=== PATIENT | male | born 1965 | race Caucasian/White ===

== ENCOUNTER 2020-07-09 11:59 | Outpatient (REF) | payer OTHER, SELFPAY | END 2020-07-09 12:00 | disposition home or self-care (01) | LOC: HO.EMPCOV 11:59 | PROVIDERS: Visit Provider Internal Medicine | DX: Z20.822 Contact with and (suspected) exposure to COVID-19 (principal) | CPT/HCPCS: C9803; U0003; U0005 ==

== ENCOUNTER 2022-09-06 12:08 | Outpatient (REF) | payer OTHER, SELFPAY ==
--- NOTE | ~2022-09-06 | XR_ITS ---
EXAMINATION: XR SHOULDER, RIGHT CLINICAL INFORMATION: Pain. COMPARISON: None available. TECHNIQUE: AP external rotation, Grashey and axillary views of the right shoulder. FINDINGS: The bones and soft tissues are normal. No fracture. A minimal accessory ossification center is seen adjacent to the inferior margin of the glenoid process. Glenohumeral and acromioclavicular alignment is anatomic with normal joint space. No abnormal soft tissue calcifications. XR/XR shoulder RT min 2V IMPRESSION: Normal right shoulder.
== END 2022-09-06 12:09 | disposition home or self-care (01) ==
LOC: HO.HOSX 12:08
PROVIDERS: Visit Provider Orthopaedic Surgery
DX: M75.51 Bursitis of right shoulder (principal)
CPT/HCPCS: 20610; 73030; J1100

== ENCOUNTER 2022-10-13 07:00 | Outpatient (RCR) | payer OTHER, SELFPAY ==
--- NOTE | 2022-09-08 10:09 | MHC.PT.EP ---
[facility] [place] Office [place] Office [place] Office [address] Joan Pulido [address] [phone] F: [phone] F: [phone] F: [phone] F: [phone] Physical Therapy Plan of Care Date of Evaluation: Date of Surgery: Diagnosis: BURSITIS Rt SHOULDER Assessment: 57 YO MALE REF TO PT W DX Rt SH BURSITIS AND MILD Rt AC Jt OA. HE RECEIVED A Rt SH INJECTION ON 09/06/22. 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 OBJECTIVE FINDINGS: DECR POSTURAL AWARENESS, LIMITED AROM/PROM Rt SH COMPLEX/SCAP, (+) TTP Rt SUBACROM/ ANT GH AND DELT; STRENGTH DEFICITS IN POST RC/ SCAP MM, AND STABBING PAINS IN Rt ANT SH/ DELTOID AREA. HE HAS DECR LUZ TO SWIMMING, TENNIS, REACHING OVER SH HEIGHT, SUDDEN MVMTS W Rt SH COMPLEX, AND HIS PAIN IS WORSE IN THE AM. THE Pt WOULD BENEFIT FROM PT TO REDUCE SXS OF Rt SH SUBACROMIAL BURSITIS AND Rt AC Jt ARTH; DEV A HEP AND SELF-SX MGMT TECHN, POSTURAL ED , PAIN MGMT, AND STRENGTHENING / ROM Rt SH COMPLEX. Frequency and Duration: The patient will be seen 1 x WK x 6 WKS (Pt PREF) Short Term Goals: *Pt'S Rt SH PAIN DECR TO 2-3/10 W REG ADLs *Pt DEMON IMPROVED AROM Rt SH *Pt DEMON APPROP SCAP RETRACTOR ACTIV *Pt INDEP SELF-CORRECT POSTURE TO REDUCE SH MECH STRESS Raised Printer Goals: *Pt INDEP HEP PROGR AND SELF-SX MGMT STRATEGIES FOR Rt SH *Pt ABLE TO PERFORM REG ADLs AND RESUME TENNIS/SWIMMING W/O EXACERB OF SXS EVIDENT W IMPROVED SPADI (AT EVAL 61/130) *Pt ACHIEVE WFL STRENGTH AND AROM IN Rt SH COMPLEX Treatment Plan: Modalities to reduce pain, spasms and effusion. Manual therapy to restore motion and function. Therapeutic exercise to improve strength and flexibility. Neuromuscular re-education for posture and balance. Therapeutic activities to return to functional activities of daily living. Electronically signed by: BUCKY SANDEEP,PT Please sign and return to therapist. Thank you for your referral.
--- NOTE | 2022-11-19 14:40 | MHC.PT.DC ---
[facility] [place] Office [place] Office [place] [facility] [address] Joan Pulido [address] [phone] F: [phone] F: [phone] F: [phone] F: [phone] Physical Therapy Discharge Report Diagnosis: BURSITIS Rt SHOULDER Date of Surgery: Date of Evaluation: 09/08/22 Date of Discharge: 11/19/22 Treatments to Date: 4 Cancellations to Date: 4 No Shows to Date: 2 Discharge Status: Patient Elected to Stop Recommend MD Follow-up Discharge Summary: THE Pt'S Rt SH PAIN PERSISTED W CERTAIN MOTIONS W ADLs, HOWEVER, HE APPEARED TO BE RESPONDING TO STM AND CAUTIOUS, PROGRESSIVE ROM FOR Rt SH/ SCAPULAR COMPLEX -> ADDRESSING TRIGGER POINTS AND EASING TISSUE TENSION AND TENDERNESS IN Rt SCAP. HE APPEARED TO HAVE ADHESIVE CAPSULITIS TYPE PRESENTATION; THE Pt DOES NOT CURRENTLY HAVE ANY OBVIOUS SH INSTABILITY. THE Pt PREFERRED TO D/C PT AT THIS TIME PENDING HIS MRI. Electronically signed by: BUCKY HOPKINS,PT Please sign and return to therapist. Thank you for your referral.
== END 2022-11-19 14:41 | disposition home or self-care (01) ==
LOC: HO.PT 07:00
PROVIDERS: PCP Hospitalist; Visit Provider Orthopaedic Surgery
DX: M75.51 Bursitis of right shoulder (principal)
CPT/HCPCS: 97014; 97110; 97140; 97162; 97530

== ENCOUNTER 2022-10-18 14:48 | Outpatient (AMB) | payer OTHER, SELFPAY ==
--- NOTE | 2022-10-18 14:57 | A.OFFVIS_ITS ---
Intake Intake Visit Reasons: OV - right shoulder pain, last inj 09/06/22 HPI OV - right shoulder pain, last inj 09/06/22 HPI Details Uday is a 57 year old right hand dominant Diabetic man who presents for an MRI review of his right shoulder pain. He continues to have pain primarily with overhead activities. He says his pain radiates down from his shoulder into his hand. He has been attending PT and has been performing at-home exercises, which he does not think is improving his symptoms much, and he does not take NSAIDs. Review of Systems Const All systems reviewed & are unremarkable except as noted in HPI and below Physical Exam Const General: no acute distress and alert Orientation/consciousness: patient oriented x3 Neuro General: patient oriented x3 Extrem Other: Right Shoulder: external rotation is limited to 25 deg compared to 45 on c/l side. Psych Appearance: grossly normal Affect: normal affect Attitude: cooperative Results Reviewed Results Reviewed: I personally reviewed relevant MR images Thickening of the inferior glenohumeral ligament and inferior labrum with associated edema signal in a patter cocerning for humeral avulsion of the inferor glebohumeral ligament. Mild AC joint arthrosis Assessment & Plan Assessment & Plan (1) Synovitis of right shoulder: Code(s): M65.811 - Other synovitis and tenosynovitis, right shoulder Plan: This is a 57 year old man with right shoulder anterior interval synovitis. He has pain with activity and does seem more affected than compared to prior. He has found no relief with PT, or his previous injection on 09/06/22. He is taking NSAIDs, I recommend he work on passive ROM exercises and anastacio-scapular strengthening and avoid exacerbating activity. He is frustrated. He may benefit from seeing Dr. Duran for nerve stimulation around the joint. (2) Diabetes mellitus: Code(s): E11.9 - Type 2 diabetes mellitus without complications Plan Scribed for Thai Krishnan MD by Pedro Pablo Helton, spanish medical interpreter, on 10/18/22 at 3:00 PM, EST. Coding Level of Care Code Est Pt Level 3 (52133) Diagnoses Synovitis of right shoulder M65.811 Diabetes mellitus E11.9
== END 2022-10-18 15:04 | disposition home or self-care (01) ==
LOC: HO.HOS 14:48
PROVIDERS: PCP Hospitalist; Visit Provider Orthopaedic Surgery
DX: M65.811 Other synovitis and tenosynovitis, right shoulder (principal)
CPT/HCPCS: 99213

== ENCOUNTER → 2022-10-18 14:48 | Outpatient (BNVA) | payer OTHER, SELFPAY | PROVIDERS: PCP Hospitalist; Visit Provider Orthopaedic Surgery ==

== ENCOUNTER 2024-05-04 15:03 | Outpatient (AMB) | payer OTHER, SELFPAY ==
--- NOTE | 2024-05-04 15:05 | MHC.OFFVIS ---
Intake Visit Reasons: Prostate Evaluation/Prostate MRI/PSA Intake Note: New patient Presents for Prostate Evaluation/Prostate MRI/PSA Results Any Urology Medication: Tamsulosin, Finasteride Antibiotic Allergies: Blood Thinners: HPI Comments Details: Isaias is a pleasant male. He is a patient of Dr. Sy. He is seen for the following urologic conditions - elevated PSA - lower urinary tract symptoms Daily tadalafil Six-month follow-up cysto office Lower urinary tract symptoms Family history of BPH Progressive symptoms Maximized on finasteride and tamsulosin Has diabetes diagnosis Imaging - 04/21 MRI 60 g prostate, no lesions of restricted diffusion flow PSA 03/20 4.5 12% Recommend addition of daily tadalafil for bladder stabilization Review of Systems Const Denies chills and Denies fever(s) Card Reports no additional complaints and Denies syncope Resp Denies cough GI Denies abdominal pain and Denies heartburn Reports as per HPI and Denies change in libido Neuro Denies syncope Psych Denies change in libido Endo Denies change in libido Physical Exam Const General: cooperative, healthy appearing, comfortable and no acute distress Orientation/consciousness: patient oriented x3 HEENT Face and sinus: Yes normal facial exam Mouth: moist mucous membranes Neck Neck: Yes normal visual inspection, Yes full ROM and Yes trachea midline Chest Chest palpation & inspection: normal inspection of the chest Resp Effort & Inspection: normal respiratory effort, able to speak in complete sentences and no respiratory distress GI Inspection: Yes normal to inspection Back/Spine/Pelvis Cervical Spine: normal cervical lordosis Thoracic/Lumbar Spine: thoracic and lumbar spine normal to inspection Skin General skin exam: no rashes or lesions noted Neuro General: patient oriented x3, gait normal, tone normal and moves all extremities Extrem General: Yes normal to inspection and Yes capillary refill normal Assessment & Plan Assessment & Plan (1) BPH w urinary obs/LUTS: Code(s): N40.1 - Benign prostatic hyperplasia with lower urinary tract symptoms; N13.8 - Other obstructive and reflux uropathy Category: Medical (2) Elevated PSA: Code(s): R97.20 - Elevated prostate specific antigen [PSA] Category: Medical (3) Erectile dysfunction associated with type 2 diabetes mellitus: Code(s): E11.69 - Type 2 diabetes mellitus with other specified complication; N52.1 - Erectile dysfunction due to diseases classified elsewhere Category: Medical Plan Start tadalafil Follow-up testosterone and six-month follow-up office cystoscopy Orders: Orders Testosterone, Total 6 Months E11.69 - Type 2 diabetes mellitus with other specified complication, N52.1 - Erectile dysfunction due to diseases classified elsewhere Medications: New tadalafil 5 mg PO DAILY 90 days 90 tabs 1RF bladder stability N13.8 - Other obstructive and reflux uropathy, N40.1 - Benign prostatic hyperplasia with lower urinary tract symptoms Patient Instructions: This note is constructed using voice recognition software. While every effort has been made to ensure accuracy chlorine cell tender errors may have been included. Imaging studies, laboratory and physical exam results were discussed and reviewed in detail. No major barriers to patient understanding were identified. An opportunity to ask questions regarding the treatment plan was provided. All questions were answered. The patient expressed understanding and agreement with the above treatment plan. The patient is aware they should contact our office by phone for worsening of their current condition or the appearance of new urologic symptoms. Compliance is encouraged with any medications and followup testing that is ordered. It is a privilege to participate in the urologic care of your patient. If you have any questions or concerns regarding treatment for the above conditions, or other urologic issues, please do not hesitate to contact me. The office telephone contact is [phone]. Sincerely, Dr Salbador Beebe MD, [facility] Compassionate Specialist Care for the Genitourinary System Coding Level of Care Code New Pt Level 4 (00267) Diagnoses BPH w urinary obs/LUTS N40.1; N13.8 Elevated PSA R97.20 Erectile dysfunction associated with type 2 diabetes mellitus E11.69; N52.1
--- OUTSIDE RECORDS SUMMARY | 2024-05-04 15:05 | XMS_ITS | Encounter Summary ---
Author Organization [facility] Address [address] [place] [address] Care Team Providers Care Product Lead Name Role Phone Kayla Sy MD Primary Care Provider [phone] Reason for Referral * Consultation (Routine) - New Request Specialty Diagnoses / Procedures Referred By Cisco santos Referred To Contact Urology Diagnoses Benign prostatic hyperplasia with lower urinary tract symptoms, symptom details unspecified Elevated PSA System, Provider Not In Ramirez, Godfrey Reis III, MD [address] [place] [id number] Phone: tel: fax: Referral ID Status Reason Start Date Expiration Date Visits Requested Visits Authorized [id number] New Request Specialty Services Required 04/23/2024 04/23/2025 1 1 Encounter Details Date Type Department Care Team (Late st Contact Info) Description 04/23/2024 Transcribed Orders EXTERNAL REFERRAL SOURCE [address] [place] [id number] System, Provider Not In Elevated PSA (Primary Dx); Benign prostatic hyperplasia with lower urinary tract symptoms, symptom details unspecified Social History Tobacco Use Types Packs/Day Years Used Date Smoking Tobacco: Never Assessed Sex and Gender Information Value Date Recorded Sex Assigned at Not on file Legal Sex Male 10:37 AM EST Gender Identity Not on file Sexual Orientation Not on file documented as of this encounter Plan of Treatment Scheduled Referrals Name Type Priority Associated Diagnoses Orde r Schedule Ambulatory referral to Urology Outpatient Referral Routine Benign prostatic hyperplasia with lower urinary tract symptoms, symptom details unspecified Elevated PSA Ordered: 04/23/2024 documented as of this encounter Visit Diagnoses Diagnosis Elevated PSA- Primary Elevated prostate specific antigen (PSA) Benign prostatic hyperplasia with lower urinary tract symptoms, symptom details unspecified documented in this encounter Care Teams Product Lead Relationship Specialty Start Date End Date Kayla Sy MD [address] [place] [address] PCP - General Internal Medicine 04/23/24 documented as of this encounter
--- OUTSIDE RECORDS SUMMARY | 2024-05-04 15:05 | XMS_ITS | Encounter Summary ---
Author Organization [facility] Address [address] [facility] [address] [place] [address] Phone Care Team Providers Care Catalytic Case Operator Name Role Phone Unavailable Primary Care Provider Unavailabl e Encounter Details Date Type Department Care Team ([facility] st Contact Info) Description 03/17/2023 Office Communication [facility] [address] [facility] [address] [place] [address] Uday Wall MD [address] [facility] [address] [place] [id number] Social History Tobacco Use Types Packs/Day Years Used Date Smoking Tobacco: Never Assessed Sex and Gender Information Value Date Recorded Sex Assigned at Not on file Legal Sex Male 8:40 AM EDT Gender Identity Not on file Sexual Orientation Not on file documented as of this encounter Plan of Treatment Not on file documented as of this encounter Visit Diagnoses Not on filedocumented in this encounter
--- OUTSIDE RECORDS SUMMARY | 2024-05-04 15:05 | XMS_ITS | Encounter Summary ---
Author Organization [facility] Address [address] [place] [phone] Phone Care Team Providers Care Aluminum Container Tester Name Role Phone Unavailable Primary Care Provider Unavailabl e Encounter Details Date Type Department Care Team (Late st Contact Info) Description 05/01/2024 8:45 AM EST Office Visit [facility] [address] [address] Uday Wall MD [address] [address] Benign prostatic hyperplasia (Primary Dx); Elevated prostate specific antigen (PSA) Social History Tobacco Use Types Packs/Day Years Used Date Smoking Tobacco: Never Assessed Sex and Gender Information Value Date Recorded Sex Assigned at Not on file Legal Sex Male 8:40 AM EDT Gender Identity Not on file Sexual Orientation Not on file documented as of this encounter Progress Notes * Uday Wall MD - 05/01/2024 8:45 AM EST Images from the original note were not included. Patient Name: Cherry Jackson Date of : 1965, 59 y.o. Date: 05/02/2024 [x] New Patient [] Established Patient [] New Hospital Follow Up [] Established Hospital Follow Up [] Telemed Visit [] H&P Referring MD: No primary care provider on file. PCP: No primary care provider on file. 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 The following portions of the patient's chart were reviewed in this encounter and updated as appropriate: ROS Full 13 point review of systems unremarkable except as noted above. No past medical history on file. T2DM 2014 Mild HTN 2015 BPH 2015 and incr PSA 2-4 range ( see below) Larry's syn Colonscopy 02/2024 No past surgical history on file. Social History Tobacco Use Smoking status: Not on file Smokeless tobacco: Not on file Substance Use Topics Alcohol use: Not on file No family history on file. Current Outpatient Medications Medication Sig Dispense Refill finasteride (PROSCAR) 5 MG tablet TAKE 1 TABLET BY MOUTH EVERY DAY 90 tablet 5 tamsulosin (FLOMAX) 0.4 MG 24 hr capsule TAKE 2 CAPSULES BY MOUTH EVERY DAY 180 capsule 5 No current facility-administered medications for this visit. Not on File Objective: There were no vitals filed for this visit. Physical Exam 120/76 Lungs clear RRR Abd soft No edema R leg varicose veins No results found for: EGFRAFR Est GFR Non Date Value Ref Range Status 09/02/2022 87 ML/MIN/1.73 M2 Final Comment: Creatinine based estimated glomerular filtration (eGFR) in adults is calculated using the National [employer] recommended 2020 CKD-EPI equation. Estimates GFR from serum creatinine, age and sex. Testing performed or reported by [facility], a Service of [facility], [address] [place] [address] Jere Molina MD, Baling Machine Tender MINOR# [id number] Chemistry Lab Units 03/15/24 0832 09/09/23 0903 10/29/22 0806 09/02/22 0830 CREATININE mg/dL 1.11 1.05 -- 1.0 BUN mg/dL 13 17 -- 14 BUN / CREAT RATIO 12 16 -- -- EGFRNAFR ML/MIN/1.73 M2 -- -- -- 87 GLUCOSE mg/dL 114* 108* -- 108* POTASSIUM mmol/L 3.9 4.3 4.2 5.1 SODIUM mmol/L 142 142 141 142 CO2 mmol/L 24 23 26 27 CHLORIDE mmol/L 101 106 104 105 ALBUMIN g/dL 4.7 4.4 -- 4.9* 4.9* HEMOGLOBIN A1C % 6.0* 5.8* -- 6.0* BILIRUBIN TOTAL mg/dL 3.6* 1.2 -- 1.5* AST IU/L 22 21 -- 20 ALT IU/L 14 15 -- 16 Bone Mineral Lab Units 03/15/24 0832 09/09/23 0903 09/02/22 0830 CALCIUM mg/dL 9.3 9.3 9.5 PHOSPHORUS mg/dL 2.7* 2.6* 2.9 ALK PHOS IU/L 71 68 60 VIT D 25 HYDROXY ng/mL 23.0* 26.5* -- CBC Lab Units 03/15/24 0832 09/09/23 0903 09/02/22 0830 WBC AUTO x10E3/uL 4.7 4.5 5.4 RBC AUTO x10E6/uL 5.14 4.70 5.12 MCV fL 91 94 94.1* HEMATOCRIT % 46.7 44.1 48.2 HEMOGLOBIN g/dL 16.2 14.8 15.8 PLATELETS AUTO x10E3/uL 201 -- 213 Labs Lab Units 03/15/24 0832 09/09/23 0903 09/02/22 0830 CHOLESTEROL TOTAL mg/dL 182 164 -- HDL mg/dL 74 61 68 NON HDL CHOL. (LDL+ VLDL) MG/DL -- -- 118 TRIGLYCERIDES mg/dL 88 68 68 Urine Lab Units 03/15/24 0832 09/09/23 0903 09/02/22 0830 PROT/CREAT RATIO UR mg/g creat 67 -- -- ALB MG/G CREAT UR mg/g creat 5 <3 Unable to calculate 109.6 Urine Lab Units 03/15/24 0832 PH U 6.0 COLOR U Yellow GLUCOSE UR Negative WBC UR HPF /hpf None seen RBC UR HPF /hpf None seen PROTEIN UR mg/dL 13.1 UROBILINOGEN UA mg/dL 0.2 PLAN: Assessment & Plan Elevated PSA on Proscar x > 5 years MRI 02/2024 No diagnosis found. No orders of the defined types were placed in this encounter. No follow-ups on file. Uday Wall MD documented in this encounter Plan of Treatment Not on file documented as of this encounter Visit Diagnoses Diagnosis Benign prostatic hyperplasia- Primary Elevated prostate specific antigen (PSA) documented in this encounter
--- OUTSIDE RECORDS SUMMARY | 2024-05-04 15:05 | XMS_ITS | Clinical Summary ---
Author Organization [facility] [address] [facility] Address [address] [place] [address] Phone Care Team Providers Care Paleologist Name Role Phone Kayla Sy MD Primary Care Provider [phone] Encounters Date Type Department Care Team Description 04/23/2024 Transcribed Orders EXTERNAL REFERRAL SOURCE [address] [place] [id number] System, Provider Not In Elevated PSA (Primary Dx); Benign prostatic hyperplasia with lower urinary tract symptoms, symptom details unspecified from Last 3 Months Social History Tobacco Use Types Packs/Day Years Used Date Smoking Tobacco: Never Assessed Sex and Gender Information Value Date Recorded Sex Assigned at Not on file Legal Sex Male 10:37 AM EST Gender Identity Not on file Sexual Orientation Not on file Plan of Treatment Health Maintenance Due Date Last Done Comments HIV screening 02/13/1976 Hepatitis C screening 1981 Tetanus adult (Td q 10,TDAP once) 1983 Lipid disorder screening 2003 Diabetes screening 02/13/2008 Shingles vaccine (Shingrix) (1 of 2 - Shingrix (RZV) 2 Dose Standard Series) 2013 Influenza vaccine 10/27/2023 Covid-19 vaccine series ( season) 2023 Colon cancer screening, Colonoscopy 03/16/2034 03/16/2024 RSV Discussion (1 - 1-dose 7 5+ series) 2038 Meningococcal Vaccine Aged Out No nan reji eligible based on patient's age to complete this topic Pneumococcal Vaccine Aged Out No long er eligible based on patient's age to complete this topic Care Teams Paleologist Relationship Specialty Start Date End Date Kayla Sy MD [address] [place] [address] PCP - General Internal Medicine 04/23/24
--- OUTSIDE RECORDS SUMMARY | 2024-05-04 15:05 | XMS_ITS | Clinical Summary ---
Author Organization [facility] Address [address] [address] Phone Care Team Providers Care Musical Therapist Name Role Phone Unavailable Primary Care Provider Unavailabl e Medications finasteride (PROSCAR) 5 MG tablet TAKE 1 TABLET BY MOUTH EVERY DAY 90 tablet 5 03/17/2023 Active tamsulosin (FLOMAX) 0.4 MG 24 hr capsule TAKE 2 CAPSULES BY MOUTH EVERY DAY 180 capsule 5 08/25/2023 Active metFORMIN (Fortamet) 1000 MG 24 hr tablet Take 1 tablet (1,000 mg total) by mouth 1 (one) time each day with dinner Do not crush, chew, or split. 30 tablet 11 05/02/2024 05/02/19 26 Active losartan (Cozaar) 25 MG tablet Take 1 tablet (25 mg total) by mouth 1 (one) time each day 30 tablet 05/02/2024 05/02/19 26 Active Encounters Date Type Department Care Team Description 05/01/2024 8:45 AM EST [facility] Visit [facility] [address] [address] Uday Wall MD Benign prostatic hyperplasia (Primary Dx); Elevated prostate specific antigen (PSA) 05/01/2024 Office Communication [facility] [address] [address] Uday Wall MD 03/15/2024 Office Communication [facility] [address] [address] Uday Wall MD Benign prostatic hyperplasia (Primary Dx); Type 2 diabetes mellitus without complication (HCC) from Last 3 Months Social History Tobacco Use Types Packs/Day Years Used Date Smoking Tobacco: Never Assessed Sex and Gender Information Value Date Recorded Sex Assigned at Not on file Legal Sex Male 8:40 AM EDT Gender Identity Not on file Sexual Orientation Not on file Plan of Treatment Health Maintenance Due Date Last Done Comments Pneumococcal Vaccine: Pediatrics (0 to 5 Years) and At-Risk Patients (6 to 64 Years) (1 of 2 - PCV) 1971 Colorectal Cancer Screening: Annual FOBT 02/13/2012 Colorectal Cancer Screening: Sigmoidoscopy 02/13/2012 Diabetes: Ophthalmology Exam 09/09/2023 Diabetes: Pedal Pulse Checked 09/09/2023 Diabetes: Sensory Foot Exam 09/09/2023 Diabetes: Visual Foot Exam 09/09/2023 Influenza Vaccine (#1) 2023 Diabetes: Hemoglobin A1C 06/13/2024 024, 09/09/2023, 09/02/2022 Colorectal Cancer Screening: Colonoscopy 03/16/2034 03/16/2024 Hepatitis B Vaccine Aged Out No longe r eligible based on patient's age to complete this topic Procedures Procedure Name Priority Date/Time Associated Diagnosis Comments PSA, TOTAL AND FREE Routine 03/22/2024 9 :01 AM EST Benign prostatic hyperplasia Type 2 diabetes mellitus without complication (HCC) APOLIPOPROTEIN B Routine 03/15/2024 8:32 AM EST CBC AND DIFFERENTIAL Routine 03/15/2024 8:32 AM EST Benign prostatic hyperplasia Type 2 diabetes mellitus without complication (HCC) LIPOPROTEIN A (LPA) Routine 03/15/2024 8 :32 AM EST Benign prostatic hyperplasia Type 2 diabetes mellitus without complication (HCC) VITAMIN D 25 HYDROXY Routine 03/15/2024 8:32 AM EST Benign prostatic hyperplasia Type 2 diabetes mellitus without complication (HCC) HEPATIC FUNCTION PANEL Routine 8:32 AM EST Benign prostatic hyperplasia Type 2 diabetes mellitus without complication (HCC) PSA, TOTAL AND FREE Routine 03/15/2024 8 :32 AM EST Benign prostatic hyperplasia Type 2 diabetes mellitus without complication (HCC) PROTEIN / CREATININE RATIO, URINE Routine 03/15/2024 8:32 AM EST Benign prostatic hyperplasia Type 2 diabetes mellitus without complication (HCC) URINE ALBUMIN / CREATININE RATIO Routine 03/15/2024 8:32 AM EST Benign prostatic hyperplasia Type 2 diabetes mellitus without complication (HCC) URINALYSIS WITH MICROSCOPIC Routine 03/15/2024 8:32 AM EST Benign prostatic hyperplasia Type 2 diabetes mellitus without complication (HCC) RENAL FUNCTION PANEL Routine 03/15/2024 8:32 AM EST Benign prostatic hyperplasia Type 2 diabetes mellitus without complication (HCC) HEMOGLOBIN A1C Routine 03/15/2024 8:32 AM EST Benign prostatic hyperplasia Type 2 diabetes mellitus without complication (HCC) LIPID PANEL Routine 03/15/2024 8:32 AM EST Benign prostatic hyperplasia Type 2 diabetes mellitus without complication (HCC) MICROSCOPIC EXAMINATION - DO NOT USE Routine 03/15/2024 8:32 AM EST from Last 3 Months Results * PSA, total and free (03/22/2024 9:01 AM EST) Only the most recent of2 resultswithin the time period is included. PSA 3.7 0.0 - 4.0 ng/mL [employer] Comment: [employer] methodology. According to the [place] [employer], Serum PSA should decrease and remain at undetectable levels after radical prostatectomy. The AUA defines biochemical recurrence as an initial PSA value 0.2 ng/mL or greater followed by a subsequent confirmatory PSA value 0.2 ng/mL or greater. Values obtained with different assay methods or kits cannot be used interchangeably. Results cannot be interpreted as absolute evidence of the presence or absence of malignant disease. PSA, Free 0.44 N/A ng/mL [facility] Comment:Paresh sargent. PSA Free Percent 11.9 % [facility] Comment: The table below lists the probability of prostate cancer for men with non-suspicious PRITESH results and total PSA between 4 and 10 ng/mL, by patient age (Gray et al, LUAN 1998, 279:1542). ?% Free PSA ? 50-64 yr ?65-75 yr ?0.00-10.00% ?56% ? 55% ? 10.01-15.00% ?24% ? 35% ? 15.01-20.00% ?17% ? 23% ? 20.01-25.00% ?10% ? 20% ?>25.00% ? 5% ?9% Please note: ??Gray et al did not make specific ?recommendations regarding the use of ?percent free PSA for any other population ?of men. Blood (Blood, Venous) 03/22/2024 9:01 AM EST 03/22/2024 us Uday Wall MD LAB BLOOD ORDERABLES Final Chana [facility] [address] [place] [address] * Apolipoprotein B (03/15/2024 8:32 AM EST) Apolipoprotein B 78 <90 mg/dL [facility] Comment: ? Desirable ? < 90 ? Borderline High ? 90 - ??99 ? High ? 100 - 130 ? Very High ? >130 ?ASCVD RISK ?THERAPEUTIC TARGET ? CATEGORY ?APO B (mg/dL) ?Very High Risk ?<80 (if extreme risk <70) ?High Risk ? <90 ?Moderate Risk ? <90 03/15/2024 8:32 AM EST 03/15/2024 us Uday Wall MD LAB BLOOD ORDERABLES Final Re sult [facility] [address] [place] [address] * Microscopic Examination (03/15/2024 8:32 AM EST) WBC, Urine None seen 0 - 5 /hpf [facility] RBC, Urine None seen 0 - 2 /hpf [facility] Squamous Epithelial, Urine None seen 0 - 10 /hpf [facility] Casts None seen None seen /lpf [facility] Bacteria, Urine None seen None seen/Few [facility] 03/15/2024 8:32 AM EST 03/15/2024 Uday Wall MD LAB MICROBIOLOGY - GENERAL OR DERABLES Final Result Performing Organization Address [facility]/ZIP Co de Phone Number [facility] [address] [place] [address] * Protein, Total, Random Urine w/Creatinine (Protein/Creat Ratio) (03/15/2024 8:32 AM EST) Creatinine, Ur 195.3 Not Estab. mg/dL [facility] Protein, Ur 13.1 Not Estab. mg/dL [facility] Urine Protein/Creatin ine Ratio 67 0 - 200 mg/g creat [facility] Urine (Urine, Clean Catch) 03/15/2024 8:32 AM EST 03/15/2024 Uday Wall MD LAB URINE ORDERABLES Final Re sult Performing Organization Address City/[facility]/ZIP Co de Phone Number [facility] [employer] [facility] [place] [address] [place] [address] * Urine Albumin / Creatinine Ratio (03/15/2024 8:32 AM EST) Urine Microalbumin 9.9 Not Estab. ug/mL [facility] Microalbumin/Crea tinine Ratio 5 0 - 29 mg/g creat [facility] Comment: ? Normal: ?0 - ??29 ? Moderately increased: 30 - 300 ? Severely increased: ? >300 Urine (Urine, Clean Catch) 03/15/2024 8:32 AM EST 03/15/2024 Uday Wall MD LAB URINE ORDERABLES Final Re sult Performing Organization Address [facility]/RUST de Phone Number [facility] [address] [place] [address] * Lipoprotein A (LPA) (03/15/2024 8:32 AM EST) Pathologist [facility] Lipoprotein (a) 31.7 <75.0 nmol/L [facility] Comment: Note: ??Values greater than or equal to 75.0 nmol/L may ? indicate an independent risk factor for CHD, ? but must be evaluated with caution when applied ? to non- populations due to the ? influence of genetic factors on Lp(a) across ? ethnicities. Blood (Blood, Venous) 03/15/2024 8:32 AM EST 03/15/2024 Uday Wall MD LAB BLOOD ORDERABLES Final Re sult Performing Organization Address [facility]/ZIP Co de Phone Number [employer] [facility] [place] [address] [place] [address] * (ABNORMAL) Vitamin D 25 hydroxy (03/15/2024 8:32 AM EST) Vitamin D, 25-OH, Total 23.0(L) 30.0 - 100.0 ng/mL [facility] Comment: Vitamin D deficiency has been defined by the [place] of [employer] and an Endocrine Society practice guideline as a level of serum 25-OH vitamin D less than 20 ng/mL (1,2). The Endocrine Society went on to further define vitamin D insufficiency as a level between 21 and 29 ng/mL (2). 1. IOM ([place] of [employer]). 2010. Dietary reference ?? intakes for calcium and D. [place]: The ?? National Divided [employer]. 2. Valencia MF, Angel NC, Skyler COLBY, et al. ?? Evaluation, treatment, and prevention of vitamin D ?? deficiency: an Endocrine Society clinical practice ?? guideline. JCEM. 2010; 96(7):1911-30. Blood (Blood, Venous) 03/15/2024 8:32 AM EST 03/15/2024 us Uday Wall MD LAB BLOOD ORDERABLES Final Re sult Performing Organization Address City/[facility]/ZIP Co de Phone Number [employer] [facility] [facility] [address] [place] [address] * Urinalysis with microscopic (03/15/2024 8:32 AM EST) Specific [place], Urine 1.019 1.005 - 1.030 [facility] pH Urine 6.0 5.0 - 7.5 [facility] [phone] Color, Urine Yellow Yellow [facility] [phone] Appearance Urine Clear Clear [facility] [phone] WBC Esterase Urine Negative Negative [facility] Protein, Ur Negative Negative/Tra ce [facility] Glucose, Ur Negative Negative [facility] Ketones, Urine Negative Negative [facility] Blood Urine Negative Negative [facility] Bilirubin Urine Negative Negative [facility] Urobilinogen Urine 0.2 0.2 - 1.0 mg/dL [facility] Nitrite, Urine Negative Negative [facility] Microscopic Examination Comment [facility] Comment:Microscopic follows if indicated. Other Microsc. Observations See below: [facility] Comment:Microscopic was alexey cated and was performed. Urine (Urine, Clean Catch) 03/15/2024 8:32 AM EST 03/15/2024 us Uday Wall MD LAB URINE ORDERABLES Final Re sult [facility] [address] [place] [address] * CBC and differential (03/15/2024 8:32 AM EST) WBC 4.7 3.4 - 10.8 x10E3/uL [facility] RBC 5.14 4.14 - 5.80 x10E6/uL [facility] Hemoglobin 16.2 13.0 - 17.7 g/dL [facility] Hematocrit 46.7 37.5 - 51.0 % [facility] MCV 91 79 - 97 fL [facility] MCH 31.5 26.6 - 33.0 pg [facility] MCHC 34.7 31.5 - 35.7 g/dL [facility] RDW 12.1 11.6 - 15.4 % [facility] Platelets 201 150 - 450 x10E3/uL [facility] Neutrophils Relative 67 Not Estab. % [facility] Lymphocytes Relative 22 Not Estab. % [facility] Monocytes 8 Not Estab. % [facility] Eosinophils Relative 3 Not Estab. % [facility] Basophils Relative 0 Not Estab. % [facility] Neutrophils Absolute 3.2 1.4 - 7.0 x10E3/uL [facility] Lymphocytes Absolute 1.1 0.7 - 3.1 x10E3/uL [facility] Monocytes Absolute 0.4 0.1 - 0.9 x10E3/uL [facility] Eosinophils Absolute 0.1 0.0 - 0.4 x10E3/uL [facility] Basophils Absolute 0.0 0.0 - 0.2 x10E3/uL [facility] Immature Granulocytes 0 Not Estab. % [facility] Immature Grans (Absolute) 0.0 0.0 - 0.1 x10E3/uL [facility] Blood (Blood, Venous) 03/15/2024 8:32 AM EST 03/15/2024 us Uday Wall MD LAB BLOOD ORDERABLES Final Re sult [facility] [address] [place] [address] * (ABNORMAL) Hemoglobin A1c (03/15/2024 8:32 AM EST) Hemoglobin A1C 6.0(H) 4.8 - 5.6 % [facility] Comment: ? Prediabetes: 5.7 - 6.4 ? Diabetes: >6.4 ? Glycemic control for adults with diabetes: <7.0 Blood (Blood, Venous) 03/15/2024 8:32 AM EST 03/15/2024 Uday Wall MD LAB BLOOD ORDERABLES [facility] [address] [place] [address] * (ABNORMAL) Hepatic Function Panel (03/15/2024 8:32 AM EST) Pathologist [facility] Alkaline Phosphatase 71 44 - 121 IU/L [facility] AST (SGOT) 22 0 - 40 IU/L [facility] ALT (SGPT) 14 0 - 44 IU/L [facility] Total Protein 6.7 6.0 - 8.5 g/dL [facility] Total Bilirubin 3.6(H) 0.0 - 1.2 mg/dL [facility] Bilirubin, Direct 0.78(H) 0.00 - 0.40 mg/dL [facility] Blood (Blood, Venous) 03/15/2024 8:32 AM EST 03/15/2024 Uday Wall MD LAB BLOOD ORDERABLES Final Re sult [facility] [address] [place] [address] * (ABNORMAL) Renal Function Panel (03/15/2024 8:32 AM EST) Glucose 114(H) 70 - 99 mg/dL [facility] BUN 13 8 - 27 mg/dL [facility] Creatinine 1.11 0.76 - 1.27 mg/dL [facility] eGFR CKD-EPI CR 2020 76 >59 mL/min/1.7 3 [facility] BUN/Creatinine Ratio 12 10 - 24 [facility] Sodium 142 134 - 144 mmol/L [facility] Potassium 3.9 3.5 - 5.2 mmol/L [facility] Chloride 101 96 - 106 mmol/L [facility] Bicarbonate (CO2) 24 20 - 29 mmol/L [facility] Calcium 9.3 8.6 - 10.2 mg/dL [facility] Albumin 4.7 3.9 - 4.9 g/dL [facility] Phosphorus 2.7(L) 2.8 - 4.1 mg/dL [facility] Blood (Blood, Venous) 03/15/2024 8:32 AM EST 03/15/2024 us Uday Wall MD LAB BLOOD ORDERABLES Final Re sult [facility] [address] [place] [address] * Lipid panel (03/15/2024 8:32 AM EST) Cholesterol 182 100 - 199 mg/dL [facility] Triglycerides 88 0 - 149 mg/dL [facility] HDL 74 >39 mg/dL [facility] VLDL Cholesterol Sunny 16 5 - 40 mg/dL [facility] LDL Calculated 92 0 - 99 mg/dL [facility] Blood (Blood, Venous) 03/15/2024 8:32 AM EST 03/15/2024 Uday Wall MD LAB BLOOD ORDERABLES Final Re sult [facility] [address] [place] [address] from Last 3 Months Insurance
--- OUTSIDE RECORDS SUMMARY | 2024-05-04 15:05 | XMS_ITS | Encounter Summary ---
Author Organization [facility] Address [address] [facility] [address] [place] [address] Phone Care Team Providers Care Business Technology Professor Name Role Phone Unavailable Primary Care Provider Unavailabl e Encounter Details Date Type Department Care Team (Latest Contact Info) Description 09/09/2023 Office Communication [facility] [address] [facility] [address] [place] [address] Uday Wall MD [address] [facility] [address] [place] [phone] Type 2 diabetes mellitus without complication (HCC) (Primary Dx); Essential (primary) hypertension Social History Tobacco Use Types Packs/Day Years Used Date Smoking Tobacco: Never Assessed Sex and Gender Information Value Date Recorded Sex Assigned at Not on file Legal Sex Male 8:40 AM EDT Gender Identity Not on file Sexual Orientation Not on file documented as of this encounter Plan of Treatment Scheduled Orders Name Type Priority Associated Diagnoses Orde r Schedule Renal function panel Lab Routine Type 2 diabetes mellitus without complication (HCC) Essential (primary) hypertension Expected: 09/09/2023, Expires: 10/08/2024 CBC Lab Routine Type 2 diabetes mellitus without complication (HCC) Essential (primary) hypertension Expected: 09/09/2023, Expires: 10/08/2024 AST Lab Routine Type 2 diabetes mellitus without complication (HCC) Essential (primary) hypertension Expected: 09/09/2023, Expires: 10/08/2024 ALT Lab Routine Type 2 diabetes mellitus without complication (HCC) Essential (primary) hypertension Expected: 09/09/2023, Expires: 10/08/2024 Alkaline phosphatase Lab Routine Type 2 diabetes mellitus without complication (HCC) Essential (primary) hypertension Expected: 09/09/2023, Expires: 10/08/2024 Bilirubin, total and direct Lab Routine Type 2 diabetes mellitus without complication (HCC) Essential (primary) hypertension Expected: 09/09/2023, Expires: 10/08/2024 Hemoglobin A1c Lab Routine Type 2 diabetes mellitus without complication (HCC) Essential (primary) hypertension Expected: 09/09/2023, Expires: 10/08/2024 Glucose, random Lab Routine Type 2 diabetes mellitus without complication (HCC) Essential (primary) hypertension Expected: 09/09/2023, Expires: 10/08/2024 PSA Lab Routine Type 2 diabetes mellitus without complication (HCC) Essential (primary) hypertension Expected: 09/09/2023, Expires: 10/08/2024 PSA, total and free Lab Routine Type 2 diabetes mellitus without complication (HCC) Essential (primary) hypertension Expected: 09/09/2023, Expires: 10/08/2024 Urine Albumin / Creatinine Ratio Lab Routine Type 2 diabetes mellitus without complication (HCC) Essential (primary) hypertension Expected: 09/09/2023, Expires: 10/08/2024 Vitamin D 25 hydroxy Lab Routine Type 2 diabetes mellitus without complication (HCC) Essential (primary) hypertension Expected: 09/09/2023, Expires: 10/08/2024 documented as of this encounter Visit Diagnoses Diagnosis Type 2 diabetes mellitus without complication (HCC)- Primary Essential (primary) hypertension documented in this encounter
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
--- OUTSIDE RECORDS SUMMARY | 2024-05-04 15:05 | XMS_ITS | Encounter Summary ---
Author Organization [facility] Address [address] [address] Phone Care Team Providers Care Cannoneer Name Role Phone Unavailable Primary Care Provider Unavailabl e Encounter Details Date Type Department Care Team (Late st Contact Info) Description 05/01/2024 Office Communication [facility] [address] [phone] Uday Wall MD [address] [address] Social History Tobacco Use Types Packs/Day Years [...]
--- OUTSIDE RECORDS SUMMARY | 2024-05-04 15:05 | XMS_ITS | Encounter Summary ---
Author Organization [facility] Address [address] [address] Phone Care Team Providers Care Telephone Maintenance Mechanic Name Role Phone Unavailable Primary Care Provider Unavailabl e Encounter Details Date Type Department Care Team (Latest Contact Info) Description 03/15/2024 Office Communication [facility]. [address] [address] Uday Wall MD [address] [address] Benign prostatic hyperplasia (Primary Dx); Type 2 diabetes mellitus without complication (HCC) Social History Tobacco Use Types Packs/Day Years Used Date Smoking Tobacco: Never Assessed Sex and Gender Information Value Date Recorded Sex Assigned at Not on file Legal Sex Male 8:40 AM EDT Gender Identity Not on file Sexual Orientation Not on file documented as of this encounter Plan of Treatment Scheduled Orders Name Type Priority Associated Diagnoses Orde r Schedule Renal Function Panel Lab Routine Benign prostatic hyperplasia Type 2 diabetes mellitus without complication (HCC) Expected: 03/15/2024, Expires: 04/15/2025 Urinalysis with microscopic Lab Routine Benign prostatic hyperplasia Type 2 diabetes mellitus without complication (HCC) Expected: 03/15/2024, Expires: 04/15/2025 Urine Albumin / Creatinine Ratio Lab Routine Benign prostatic hyperplasia Type 2 diabetes mellitus without complication (HCC) Expected: 03/15/2024, Expires: 04/15/2025 Protein, Total, Random Urine w/Creatinine (Protein/Creat Ratio) Lab Routine Benign prostatic hyperplasia Type 2 diabetes mellitus without complication (HCC) Expected: 03/15/2024, Expires: 04/15/2025 CBC Lab Routine Benign prostatic hyperplasia Type 2 diabetes mellitus without complication (HCC) Expected: 03/15/2024, Expires: 04/15/2025 Hepatic Function Panel Lab Routine Benign prostatic hyperplasia Type 2 diabetes mellitus without complication (HCC) Expected: 03/15/2024, Expires: 04/15/2025 PSA, total and free Lab Routine Benign prostatic hyperplasia Type 2 diabetes mellitus without complication (HCC) Expected: 03/15/2024, Expires: 04/15/2025 Lipoprotein A (LPA) Lab Routine Benign prostatic hyperplasia Type 2 diabetes mellitus without complication (HCC) Expected: 03/15/2024, Expires: 04/15/2025 Lipid panel Lab Routine Benign prostatic hyperplasia Type 2 diabetes mellitus without complication (HCC) Expected: 03/15/2024, Expires: 04/15/2025 Miscellaneous Lab Test Lab Routine Benign prostatic hyperplasia Type 2 diabetes mellitus without complication (HCC) Expected: 03/15/2024, Expires: 04/15/2025 Hemoglobin A1c Lab Routine Benign prostatic hyperplasia Type 2 diabetes mellitus without complication (HCC) Expected: 03/15/2024, Expires: 04/15/2025 Vitamin D 25 hydroxy Lab Routine Benign prostatic hyperplasia Type 2 diabetes mellitus without complication (HCC) Expected: 03/15/2024, Expires: 04/15/2025 Glucose, random Lab Routine Benign prostatic hyperplasia Type 2 diabetes mellitus without complication (HCC) Expected: 03/15/2024, Expires: 04/15/2025 Miscellaneous Lab Test Lab Routine Benign prostatic hyperplasia Type 2 diabetes mellitus without complication (HCC) Expected: 03/15/2024, Expires: 04/15/2025 Miscellaneous Lab Test Lab Routine Benign prostatic hyperplasia Type 2 diabetes mellitus without complication (HCC) Expected: 03/15/2024, Expires: 04/15/2025 documented as of this encounter Procedures Procedure Name Priority Date/Time Associated Diagnosis Comments PSA, TOTAL AND FREE Routine 03/22/2024 9 :01 AM EST Benign prostatic hyperplasia Type 2 diabetes mellitus without complication (HCC) APOLIPOPROTEIN B Routine 03/15/2024 8:32 AM EST MICROSCOPIC EXAMINATION - DO NOT USE Routine 03/15/2024 8:32 AM EST PROTEIN / CREATININE RATIO, URINE Routine 03/15/2024 [...] Type 2 diabetes mellitus without complication (HCC) CBC AND DIFFERENTIAL Routine 03/15/2024 8:32 AM [...] Type 2 diabetes mellitus without complication (HCC) documented in this encounter Results * PSA, total and free (03/22/2024 9:01 AM EST) PSA 3.7 0.0 - 4.0 ng/mL [facility] Comment: Paresh ECLIA methodology. According to the [place] [employer], Serum PSA should decrease and [...] malignant disease. PSA, Free 0.44 N/A ng/mL [facility] Comment:[employer] ECLIA methodol ogy. PSA Free Percent 11.9 % [facility] Comment: The table below lists the probability [...] 20% ?>25.00% ? 5% ?9% Please note: ??Sylvain did not make specific ?recommendations regarding the use of ?percent free PSA for any other population ?of men. Blood (Blood, Venous) 03/22/2024 9:01 AM EST 03/22/2024 Uday Wall MD LAB BLOOD ORDERABLES Final Re sult Performing Organization Address [facility] de Phone Number [facility] [address] [place] [address] * Microscopic Examination (03/15/2024 8:32 AM EST) WBC, Urine None seen 0 - 5 /hpf [facility] RBC, Urine None seen 0 - 2 /hpf [facility] Squamous Epithelial, Urine None seen 0 - 10 /hpf [facility] Casts None seen None seen /lpf [facility] Bacteria, Urine None seen None seen/Few [facility] 03/15/2024 8:32 AM EST 03/15/2024 Uday Wall MD LAB MICROBIOLOGY - GENERAL OR DERABLES Final Result Performing Organization Address [facility] de Phone Number [facility] [address] [place] [address] * Apolipoprotein B (03/15/2024 8:32 AM EST) Apolipoprotein B 78 <90 mg/dL [facility] Comment: ? Desirable ? < 90 ? [...] MD LAB BLOOD ORDERABLES Final Re sult [facility] [address] [place] [address] * CBC and differential (03/15/2024 8:32 AM EST) WBC 4.7 3.4 - 10.8 x10E3/uL [facility] RBC 5.14 4.14 - 5.80 x10E6/uL [facility] Hemoglobin 16.2 13.0 - 17.7 g/dL [facility] Hematocrit 46.7 37.5 - 51.0 % [facility] MCV 91 79 - 97 fL [facility] MCH 31.5 26.6 - 33.0 pg [facility] MCHC 34.7 31.5 - 35.7 g/dL [facility] RDW 12.1 11.6 - 15.4 % [facility] Platelets 201 150 - 450 x10E3/uL [facility] Neutrophils Relative 67 Not Estab. % [facility] Lymphocytes Relative 22 Not Estab. % [facility] Monocytes 8 Not Estab. % [facility] Eosinophils Relative 3 Not Estab. % [facility] Basophils Relative 0 Not Estab. % [facility] Neutrophils Absolute 3.2 1.4 - 7.0 x10E3/uL [facility] Lymphocytes Absolute 1.1 0.7 - 3.1 x10E3/uL [facility] Monocytes Absolute 0.4 0.1 - 0.9 x10E3/uL [facility] Eosinophils Absolute 0.1 0.0 - 0.4 x10E3/uL [facility] Basophils Absolute 0.0 0.0 - 0.2 x10E3/uL [facility] Immature Granulocytes 0 Not Estab. % [facility] Immature Grans (Absolute) 0.0 0.0 - 0.1 x10E3/uL [facility] Blood (Blood, Venous) 03/15/2024 8:32 AM EST 03/15/2024 us Uday Wall MD LAB BLOOD ORDERABLES Final Re sult Performing Organization Address [facility] de Phone Number [facility] [address] [place] [address] * Lipoprotein A (LPA) (03/15/2024 8:32 AM EST) Lipoprotein (a) 31.7 <75.0 nmol/L [facility] Comment: Note: ??Values greater than or equal [...] ORDERABLES Final Re sult Performing Organization Address [facility] Co de Phone Number [facility] [address] [place] [phone] * (ABNORMAL) Vitamin D 25 hydroxy (03/15/2024 8:32 AM EST) Vitamin D, 25-OH, Total 23.0(L) 30.0 - 100.0 ng/mL [facility] Comment: Vitamin D deficiency has been defined by the [place] of [employer] and an Endocrine Society practice guideline as a level of serum 25-OH vitamin D less than 20 ng/mL (1,2). The Endocrine Society went on to further define vitamin D insufficiency as a level between 21 and 29 ng/mL (2). 1. IOM ([place] of [employer]). 2010. Dietary reference ?? intakes for calcium and D. [place]: The ?? National [employer]. 2. Valencia MF, Angel NC, Skyler COLBY, et al. ?? Evaluation, treatment, and prevention of vitamin D ?? deficiency: an Endocrine Society clinical practice ?? guideline. JCEM. 2010; 96(2):7901-30. Blood (Blood, Venous) 03/15/2024 8:32 AM EST 03/15/2024 Uday Wall MD LAB BLOOD ORDERABLES Final Re sult Performing Organization Address City/[facility]/ZIP Co de Phone Number [facility] [address] [place] [address] * (ABNORMAL) Hepatic Function Panel (03/15/2024 8:32 AM EST) Alkaline Phosphatase 71 44 - 121 IU/L [facility] AST (SGOT) 22 0 - 40 IU/L [facility] ALT (SGPT) 14 0 - 44 IU/L [facility] Total Protein 6.7 6.0 - 8.5 g/dL [facility] Total Bilirubin 3.6(H) 0.0 - 1.2 mg/dL [facility] Bilirubin, Direct 0.78(H) 0.00 - 0.40 mg/dL [facility] Blood (Blood, Venous) 03/15/2024 8:32 AM EST 03/15/2024 Uday Wall MD LAB BLOOD ORDERABLES Final Re sult Performing Organization Address City/[facility]/ZIP Co de Phone Number [facility] [address] [place] [address] * (ABNORMAL) PSA, total and free (03/15/2024 8:32 AM EST) PSA 4.5(H) 0.0 - 4.0 ng/mL [facility] Comment: Paresh ECLIA methodology. According to the [place] [employer], Serum PSA should decrease and [...] or absence of malignant disease. PSA, Free 0.51 N/A ng/mL [facility] Comment:Paresh ECLIA methodol ogy. PSA Free Percent 11.3 % [facility] Comment: The table below lists the probability [...] 20% ?>25.00% ? 5% ?9% Please note: ??Sylvain did not make specific ?recommendations regarding the use of ?percent free PSA for any other population ?of men. Blood (Blood, Venous) 03/15/2024 8:32 AM EST 03/15/2024 Uday Wall MD LAB BLOOD ORDERABLES Final Re sult Performing Organization Address [facility] Co de Phone Number [facility] [address] [place] [address] * Protein, Total, Random Urine w/Creatinine (Protein/Creat Ratio) (03/15/2024 8:32 AM EST) Creatinine, Ur 195.3 Not Estab. mg/dL [facility] Protein, Ur 13.1 Not Estab. mg/dL [facility] Urine Protein/Creatin ine Ratio 67 0 - 200 mg/g creat [facility] Urine (Urine, Clean Catch) 03/15/2024 8:32 AM EST 03/15/2024 Uday Wall MD LAB URINE ORDERABLES Final Re sult Performing Organization Address [facility] de Phone Number [facility] [address] [place] [address] * Urine Albumin / Creatinine Ratio (03/15/2024 8:32 AM EST) Urine Microalbumin 9.9 Not Estab. ug/mL [facility] Microalbumin/Crea tinine Ratio 5 0 - 29 mg/g creat [facility] Comment: ? Normal: ?0 - ??29 ? Moderately increased: 30 - 300 ? Severely increased: ? >300 Urine (Urine, Clean Catch) 03/15/2024 8:32 AM EST 03/15/2024 us Uday Wall MD LAB URINE ORDERABLES Final Re sult [facility] [address] [place] [address] * Urinalysis with microscopic (03/15/2024 8:32 AM EST) Specific [place], Urine 1.019 1.005 - 1.030 [facility] pH Urine 6.0 5.0 - 7.5 [facility] Color, Urine Yellow Yellow [facility] [phone] Appearance Urine Clear Clear [facility] WBC Esterase Urine Negative Negative [facility] Protein, Ur Negative Negative/Tra ce [facility] Glucose, Ur Negative Negative [facility] Ketones, Urine Negative Negative [facility] [phone] Blood Urine Negative Negative [facility] [phone] Bilirubin Urine Negative Negative [facility] Urobilinogen Urine 0.2 0.2 - 1.0 mg/dL [facility] Nitrite, Urine Negative Negative [facility] Microscopic Examination Comment [facility] Comment:Microscopic follows if indicated. Other Microsc. Observations See below: [facility] Comment:Microscopic was alexey cated and was performed. Urine (Urine, Clean Catch) 03/15/2024 8:32 AM EST 03/15/2024 Uday Wall MD LAB URINE ORDERABLES Final Re sult [facility] [address] [place] [address] * (ABNORMAL) Renal Function Panel (03/15/2024 8:32 AM EST) Glucose 114(H) 70 - 99 mg/dL [facility] BUN 13 8 - 27 mg/dL [facility] Creatinine 1.11 0.76 - 1.27 mg/dL [facility] eGFR CKD-EPI CR 2020 76 >59 mL/min/1.7 3 [facility] BUN/Creatinine Ratio 12 10 - 24 [facility] Sodium 142 134 - 144 mmol/L [facility] Potassium 3.9 3.5 - 5.2 mmol/L [facility] Chloride 101 96 - 106 mmol/L [facility] Bicarbonate (CO2) 24 20 - 29 mmol/L [facility] Calcium 9.3 8.6 - 10.2 mg/dL [facility] Albumin 4.7 3.9 - 4.9 g/dL [facility] Phosphorus 2.7(L) 2.8 - 4.1 mg/dL [facility] Blood (Blood, Venous) 03/15/2024 8:32 AM EST 03/15/2024 Uday Wall MD LAB BLOOD ORDERABLES Final Re sult Performing Organization Address City/[facility] de Phone Number [facility] [address] [place] [address] * (ABNORMAL) Hemoglobin A1c (03/15/2024 8:32 AM EST) Hemoglobin A1C 6.0(H) 4.8 - 5.6 % [facility] Comment: ? Prediabetes: 5.7 - 6.4 ? Diabetes: >6.4 ? Glycemic control for adults with diabetes: <7.0 Blood (Blood, Venous) 03/15/2024 8:32 AM EST 03/15/2024 Uday Wall MD LAB BLOOD ORDERABLES Final Re sult Performing Organization Address [facility] de Phone Number [facility] [address] [place] [address] * Lipid panel (03/15/2024 8:32 AM EST) Cholesterol 182 100 - 199 mg/dL [facility] Triglycerides 88 0 - 149 mg/dL [facility] HDL 74 >39 mg/dL [facility] VLDL Cholesterol Sunny 16 5 - 40 mg/dL [facility] LDL Calculated 92 0 - 99 mg/dL [facility] Blood (Blood, Venous) 03/15/2024 8:32 AM EST 03/15/2024 Uday Wall MD LAB BLOOD ORDERABLES Final Re sult Performing Organization Address [facility] Co de Phone Number [facility] [address] [place] [address] documented in this encounter Visit Diagnoses Diagnosis Benign prostatic hyperplasia- Primary Type 2 diabetes mellitus without complication (HCC) documented in this encounter
== END 2024-05-04 16:22 | disposition home or self-care (01) ==
LOC: HO.HUSH 15:03
PROVIDERS: PCP Hospitalist; Visit Provider Urology
DX: N40.1 Benign prostatic hyperplasia with lower urinary tract symptoms (principal); N13.8 Other obstructive and reflux uropathy; R97.20 Elevated prostate specific antigen [PSA]; E11.69 Type 2 diabetes mellitus with other specified complication; N52.1 Erectile dysfunction due to diseases classified elsewhere
CPT/HCPCS: 99204

== ENCOUNTER 2024-10-12 13:55 | Outpatient (AMB) | payer OTHER, SELFPAY ==
--- OUTSIDE RECORDS SUMMARY | 2024-10-12 13:59 | XMS_ITS | Encounter Summary ---
Author Organization [facility] Address [address] [address] Phone Care Team Providers Care Car Repairer Helper Name Role Phone Unavailable Primary Care Provider Unavailabl e Encounter Details Date Type Department Care Team (Latest Contact Info) Description 10/03/2024 Office Communication [facility]. [address] [address] Uday Wall MD [address] [address] Essential (primary) hypertension (Primary Dx) Social History Tobacco Use Types Packs/Day Years Used Date Smoking Tobacco: Never Assessed Sex and Gender Information Value Date Recorded Sex Assigned at Not on file Legal Sex Male 8:40 AM EDT Gender Identity Not on file Sexual Orientation Not on file documented as of this encounter Plan of Treatment Scheduled Orders Name Type Priority Associated Diagnoses Orde r Schedule PSA Lab Routine Essential (primary) hypertension Expected: 10/03/2024, Expires: 11/03/2025 documented as of this encounter Procedures Procedure Name Priority Date/Time Associated Diagnosis Comments PSA, TOTAL AND FREE Routine 10/11/2024 1 2:46 PM EDT Essential (primary) hypertension HEMOGLOBIN A1C Routine 10/11/2024 12:46 PM EDT Essential (primary) hypertension MICROSCOPIC EXAMINATION - DO NOT USE Routine 10/03/2024 8:20 AM EDT PROTEIN / CREATININE RATIO, URINE Routine 10/03/2024 8:20 AM EDT Essential (primary) hypertension URINE ALBUMIN / CREATININE RATIO Routine 10/03/2024 8:20 AM EDT Essential (primary) hypertension URINALYSIS WITH MICROSCOPIC Routine 10/03/2024 8:20 AM EDT Essential (primary) hypertension CBC Routine 10/03/2024 8:20 AM EDT Essential (primary) hypertension PSA, TOTAL AND FREE Routine 10/03/2024 8 :20 AM EDT Essential (primary) hypertension BILIRUBIN, TOTAL AND DIRECT Routine 10/03/2024 8:20 AM EDT Essential (primary) hypertension ALT Routine 10/03/2024 8:20 AM EDT Essential (primary) hypertension AST Routine 10/03/2024 8:20 AM EDT Essential (primary) hypertension ALKALINE PHOSPHATASE Routine 10/03/2024 8:20 AM EDT Essential (primary) hypertension RENAL FUNCTION PANEL Routine 10/03/2024 8:20 AM EDT Essential (primary) hypertension LIPID PANEL Routine 10/03/2024 8:20 AM EDT Essential (primary) hypertension documented in this encounter Results * (ABNORMAL) Hemoglobin A1c (10/11/2024 12:46 PM EDT) Hemoglobin A1C 5.9(H) 4.8 - 5.6 % [facility] Comment: Prediabetes: 5.7 - 6.4 Diabetes: >6.4 Glycemic control for adults with diabetes: <7.0 Blood Venous blood / Unknown 10/11/2024 12:46 PM EDT 10/11/2024 us Uday Wall MD LAB BLOOD ORDERABLES Final Re sult [facility] [address] [place] [address] * (ABNORMAL) PSA, total and free (10/11/2024 12:46 PM EDT) PSA 5.5(H) 0.0 - 4.0 ng/mL [facility] Comment: Paresh ECLIA methodology. According to the [place] [employer], Serum PSA should decrease and [...] or absence of malignant disease. PSA, Free 0.61 N/A ng/mL [facility] Comment:[place] Direct Auto ECLIA methodol ogy. PSA Free Percent 11.1 % Lab [facility] Comment: The table below lists the probability of prostate cancer for men with non-suspicious PRITESH results and total PSA between 4 and 10 ng/mL, by patient age (Catalmichelle et al, LUAN 1998, 279:1542). % Free PSA 50-64 yr 65-75 yr 0.00-10.00% 56% 55% 10.01-15.00% 24% 35% 15.01-20.00% 17% 23% 20.01-25.00% 10% 20% >25.00% 5% 9% Please note: Gray et al did not make specific recommendations regarding the use of percent free PSA for any other population of men. Blood Venous blood / Unknown 10/11/2024 12:46 PM EDT 10/11/2024 us Uday Wall MD LAB BLOOD ORDERABLES Final Re sult [facility] [address] [place] [address] * Microscopic Examination (10/03/2024 8:20 AM EDT) WBC, Urine None seen 0 - 5 /hpf [facility] RBC, Urine None seen 0 - 2 /hpf [facility] Squamous Epithelial, Urine None seen 0 - 10 /hpf [facility] Casts None seen None seen /lpf [facility] Bacteria, Urine None seen None seen/Few [facility] 10/03/2024 8:20 AM EDT 10/03/2024 us Uday Wall MD LAB MICROBIOLOGY - GENERAL OR DERABLES Final Result [facility] [address] [place] [address] * CBC (10/03/2024 8:20 AM EDT) WBC 4.6 3.4 - 10.8 x10E3/uL [facility] RBC 4.93 4.14 - 5.80 x10E6/uL [facility] Hemoglobin 15.4 13.0 - 17.7 g/dL [facility] Hematocrit 47.4 37.5 - 51.0 % [facility] MCV 96 79 - 97 fL [facility] MCH 31.2 26.6 - 33.0 pg [facility] MCHC 32.5 31.5 - 35.7 g/dL [facility] RDW 12.9 11.6 - 15.4 % [facility] Platelets 185 150 - 450 x10E3/uL [facility] Blood Venous blood / Unknown 10/03/2024 8:20 AM EDT 10/03/2024 Uday Wall MD LAB BLOOD ORDERABLES Final Re sult [facility] [address] [place] [address] * (ABNORMAL) PSA, total and free (10/03/2024 8:20 AM EDT) PSA 4.5(H) 0.0 - 4.0 ng/mL [facility] Comment: [place] Direct Auto ECLIA methodology. According to the [place] [employer], Serum PSA should decrease and [...] or absence of malignant disease. PSA, Free 0.55 N/A ng/mL [facility] Comment:[place] Direct Auto ECLIA methodol ogy. PSA Free Percent 12.2 % [facility] Comment: The table below lists the probability of prostate cancer for men with non-suspicious PRITESH results and total PSA between 4 and 10 ng/mL, by patient age (Gray et al, LUAN 1998, 279:1542). % Free PSA 50-64 yr 65-75 yr 0.00-10.00% 56% 55% 10.01-15.00% 24% 35% 15.01-20.00% 17% 23% 20.01-25.00% 10% 20% >25.00% 5% 9% Please note: Gray et al did not make specific recommendations regarding the use of percent free PSA for any other population of men. Blood Venous blood / Unknown 10/03/2024 8:20 AM EDT 10/03/2024 Uday Wall MD LAB BLOOD ORDERABLES Final Re sult [facility] [address] [place] [address] * (ABNORMAL) Bilirubin, total and direct (10/03/2024 8:20 AM EDT) Total Bilirubin 1.2 0.0 - 1.2 mg/dL [facility] Bilirubin, Direct 0.38 0.00 - 0.40 mg/dL [facility] Bilirubin, Indirect 0.82(H) 0.10 - 0.80 mg/dL [facility] Blood Venous blood / Unknown 10/03/2024 8:20 AM EDT 10/03/2024 Uday Wall MD LAB BLOOD ORDERABLES Final Re sult Performing Organization Address City/[facility]/ZIP Co de Phone Number [facility] [address] [place] [address] * Alkaline phosphatase (10/03/2024 8:20 AM EDT) Alkaline Phosphatase 56 44 - 121 IU/L [facility] Blood Venous blood / Unknown 10/03/2024 8:20 AM EDT 10/03/2024 Uday Wall MD LAB BLOOD ORDERABLES Final Re sult [facility] [address] [place] [address] * ALT (10/03/2024 8:20 AM EDT) ALT (SGPT) 24 0 - 44 IU/L [facility] Blood Venous blood / Unknown 10/03/2024 8:20 AM EDT 10/03/2024 us Uday Wall MD LAB BLOOD ORDERABLES Final Re sult [facility] [address] [place] [address] * AST (10/03/2024 8:20 AM EDT) AST (SGOT) 22 0 - 40 IU/L [facility] Blood Venous blood / Unknown 10/03/2024 8:20 AM EDT 10/03/2024 us Uday Wall MD LAB BLOOD ORDERABLES Final Re sult Performing Organization Address [facility] Co de Phone Number [facility] [address] [place] [address] * Lipid panel (10/03/2024 8:20 AM EDT) Cholesterol 128 100 - 199 mg/dL [facility] Triglycerides 69 0 - 149 mg/dL [facility] HDL 60 >39 mg/dL [facility] VLDL Cholesterol Sunny 14 5 - 40 mg/dL [facility] LDL Calculated 54 0 - 99 mg/dL [facility] Blood Venous blood / Unknown 10/03/2024 8:20 AM EDT 10/03/2024 us Uday Wall MD LAB BLOOD ORDERABLES Final Re sult Performing Organization Address City/[facility]/ZIP Co de Phone Number [facility] [address] [place] [address] * Protein, Total, Random Urine w/Creatinine (Protein/Creat Ratio) (10/03/2024 8:20 AM EDT) Creatinine, Ur 163.8 Not Estab. mg/dL [facility] Protein, Ur 10.3 Not Estab. mg/dL [facility] Urine Protein/Creatin ine Ratio 63 0 - 200 mg/g creat [facility] Urine Urine specimen obtained by clean catch procedure / Unknown 10/03/2024 8:20 AM EDT 10/03/2024 Uday Wall MD LAB URINE ORDERABLES Final Re sult Performing Organization Address [facility] Co de Phone Number [facility] [address] [place] [address] * Urine Albumin / Creatinine Ratio (10/03/2024 8:20 AM EDT) Albumin, Urine 3.7 Not Estab. ug/mL [facility] Albumin/Creatin ine Ratio 2 0 - 29 mg/g creat [facility] Comment: Normal: 0 - 29 Moderately increased: 30 - 300 Severely increased: >300 Urine Urine specimen obtained by clean catch procedure / Unknown 10/03/2024 8:20 AM EDT 10/03/2024 Uday Wall MD LAB URINE ORDERABLES Final Re sult Performing Organization Address City/[facility] Co de Phone Number [facility] [address] [place] [address] * Urinalysis with microscopic (10/03/2024 8:20 AM EDT) Specific [place], Urine 1.026 1.005 - 1.030 [facility] pH Urine 5.5 5.0 - 7.5 [facility] Color, Urine Yellow Yellow [facility] Appearance Urine Clear Clear [facility] WBC Esterase Urine Negative Negative [facility] [phone] Protein, Ur Negative Negative/Tra ce [facility] Glucose, Ur Negative Negative [facility] Ketones, Urine Negative Negative [facility] [phone] Blood Urine Negative Negative [facility] [phone] Bilirubin Urine Negative Negative [facility] Urobilinogen Urine 0.2 0.2 - 1.0 mg/dL [facility] Nitrite, Urine Negative Negative [facility] [phone] Microscopic Examination Comment [facility] Comment:Microscopic follows if indicated. Other Microsc. Observations See below: [facility] Comment:Microscopic was alexey cated and was performed. Urine Urine specimen obtained by clean catch procedure / Unknown 10/03/2024 8:20 AM EDT 10/03/2024 us Uday Wall MD LAB URINE ORDERABLES Final Re sult [facility] [address] [place] [address] * (ABNORMAL) Renal Function Panel (10/03/2024 8:20 AM EDT) Glucose 115(H) 70 - 99 mg/dL [facility] BUN 19 8 - 27 mg/dL [facility] Creatinine 1.09 0.76 - 1.27 mg/dL [facility] eGFR CKD-EPI CR 2020 77 >59 mL/min/1.7 3 [facility] BUN/Creatinine Ratio 17 10 - 24 [facility] Sodium 143 134 - 144 mmol/L [facility] Potassium 4.7 3.5 - 5.2 mmol/L [facility] Chloride 106 96 - 106 mmol/L [facility] Bicarbonate (CO2) 20 20 - 29 mmol/L [facility] Calcium 9.3 8.6 - 10.2 mg/dL [facility] Albumin 4.6 3.9 - 4.9 g/dL [facility] Phosphorus 2.8 2.8 - 4.1 mg/dL [facility] Blood Venous blood / Unknown 10/03/2024 8:20 AM EDT 10/03/2024 Uday Wall MD LAB BLOOD ORDERABLES Final Re sult [facility] [address] [place] [address] documented in this encounter Visit Diagnoses Diagnosis Essential (primary) hypertension- Primary documented in this encounter
--- OUTSIDE RECORDS SUMMARY | 2024-10-12 13:59 | XMS_ITS | Clinical Summary ---
Author Organization [facility] [address] [facility] Address [address] [place] [address] Phone Care Team Providers Care Customer Contact Sales Associate Name Role Phone Kayla Sy MD Primary Care Provider [phone] Allergies No known active allergies Medications finasteride (PROSCAR) 5 mg tablet Take 1 [...] Encounters Date Type Department Care Team Description 09/21/2024 1:00 PM EDT Procedure visit General Surgery [address] [address] Elliot Pardo MD Dysplastic nevus (Primary Dx) 08/24/2024 8:00 AM EDT Consult [address] [address] Elliot Pardo MD Dysplastic nevus (Primary Dx) from Last 3 Months Surgical History Surgery Date Site/Laterality Comments HERNIA REPAIR KNEE ARTHROSCOPY W/ ACL RECONSTRUCTION Ri ght KNEE ARTHROSCOPY W/ MENISCAL REPAIR Left Medical History Medical History Date Comments Diabetes mellitus (CMS/HCC V24, CMS/HCC V28) Hypertension BPH (benign prostatic hyperplasia) Social History Tobacco Use Types Packs/Day Years Used Date Smoking Tobacco: Never Smokeless Tobacco: Never Tobacco Cessation:Counseling Given: Not Answered Alcohol Use Standard Drinks/Week Comments Yes 0 (1 standard drink = 0.6 oz pur e alcohol) 7 Interpersonal Safety Answer Date Record ed Physical Abuse 03/16/2024 Verbal Abuse 03/16/2024 Sex and Gender Information Value Date Recorded Sex Assigned at Male 03/15/2024 1:37 PM EST Legal Sex Male 6:44 AM EST Gender Identity Male 03/15/2024 1:37 PM EST Sexual Orientation Not on file Obstetrics History Last Filed Vital Signs Vital Sign Reading Time Taken Comments Blood Pressure 128/74 09/21/2024 12:49 PM EDT Pulse 63 09/21/2024 12:49 PM EDT Temperature 36.2 C (97.1 F) 08/24/2024 7:57 AM EDT Respiratory Rate 18 03/16/2024 12:42 PM EST Oxygen Saturation 100% 03/16/2024 12:42 PM EST Inhaled Oxygen Concentration - - Weight 73.5 kg (162 lb) 08/24/2024 7:57 AM EDT Height 177.8 cm (5' 10 ) 09/21/2024 12:49 PM EDT Body Mass Index 23.24 08/24/2024 7:57 AM EDT Plan of Treatment Health Maintenance Due Date Last Done Comments COVID-19 Vaccine (#1) 02/13/1968 DTaP,Tdap,and Td Vaccines (1 - Tdap) 1982 Zoster Vaccines (1 of 2) 1982 Pneumococcal Vaccine: 50+ Ye ars (1 of 1 - PCV) 2013 Depression Screening 02/03/2024 HIV Screening 02/03/2024 Hepatitis C Screening 02/03/2024 Social Influencers of Health Screening 02/03/2024 Influenza Vaccine (#1) 2024 12/31/2023 Cholesterol Screening (Lipid Panel) 03/15/2029 03/15/2024 Colorectal Cancer Screening: Colonoscopy 03/16/2034 03/16/2024 RSV Immunization Adult Patie nts (1 - 1-dose 75+ series) 2038 HIB Vaccines Aged Out No longer eligi [...] patient's age to complete this topic Meningococcal B Vaccine Aged Out No l onger eligible based on patient's age to complete this topic RSV Immunization Patients Un pauly 20 months Aged Out No longer eligible b ased on patient's age to complete this topic Varicella Vaccines Aged Out No longer eligible based on patient's age to complete this topic Procedures Procedure Name Priority Date/Time Associated Diagnosis Comments TISSUE EXAM Routine 09/21/2024 1:02 PM EDT Dysplastic nevus COLONOSCOPY Routine 03/16/2024 12:19 PM EST Hx of colonic polyps from Last 3 Months or Most Recently Relevant to Health Maintenance Results * Tissue Exam (09/21/2024 1:02 PM EDT) Final Diagnosis Skin, right mid upper back, excision: Dermal scar; no atypical melanocytic proliferation identified 09/25/2024 9:09 AM EDT JAGRUTI CHIRINOS MD ([facility]) [facility] Clinical Information Dysplastic nevus D23.9 [id number] Right Mid Upper Back Dysplastic Nevus 09/25/2024 9:09 AM EDT JAGRUTI CHIRINOS MD ([facility]) [facility] Gross Description A. Back, Upper, Right Mid Dysplastic Nevus: Labeled back U . Received in formalin is a 1.7 x 0.6 cm unoriented mcclelland-white skin ellipse excised to depth of 0.8 cm. The epidermis displays a central 0.6 x 0.2 cm pink-white well-healed scar, located 0.1 cm from the closest margin. The specimen is inked in blue, serially sectioned, and entirely submitted in four cassettes, with the unoriented en face tips in cassette one, two pieces each SHYANN 09/25/2024 9:09 AM EDT [facility] Disclaimer Unless otherwise specified, all tissue is 10% NB formalin fixed and paraffin embedded. 09/25/2024 9:09 AM EDT [facility] Tissue Structure of upper back / Unknown Non-blood Collection / Unknown 09/21/2024 1:02 PM EDT 09/21/2024 1:04 PM EDT Comment:[id number] Mid Upper Back Dysplastic Nevus us Elliot Pardo MD LAB PATHOLOGY ORDERABLES Fi nal Result [facility]) [facility] [address] [place] [address], * COLONOSCOPY Anesthesia - MAC; [facility] ENDOSCOPY (03/16/2024 12:19 PM EST) Anatomical Region Laterality Modality Other 03/16/2024 11:0 0 AM EST Impressions 03/16/2024 12:20 PM EST - Non-bleeding internal hemorrhoids. - The examination was otherwise normal on direct and retroflexion views. - No specimens collected. Recommendation: - Discharge patient to home. - Resume previous diet. - Continue present medications. - Repeat colonoscopy in 5 years for surveillance. - Return to GI office PRN. Narrative 03/16/2024 12:20 PM EST [facility] Patient Name: Celsa Marrero Procedure Date: 03/16/2024 11:00 AM Date of : 1965 Age: 59 Room: ROOM 14 Gender: Male Note Status: Finalized Attending MD: Mason Rubalcava MD, Procedure Date No Time: 03/16/2024 Procedure: Colonoscopy Indications: High risk colon cancer surveillance: Personal history of colonic polyps Providers: Mason Rubalcava MD Referring MD: Mason Rubalcava MD Medicines: Monitored Anesthesia Care Complications: No immediate complications. Estimated Blood Loss: Estimated blood loss: none. Procedure: Pre-Anesthesia Assessment: - ASA Grade Assessment: II - A patient with mild systemic disease. - After reviewing the risks and benefits, the patient was deemed in satisfactory condition to undergo the procedure. After I obtained informed consent, the scope was passed under direct vision. Throughout the procedure, the patient's blood pressure, pulse, and oxygen [...] small. The exam was otherwise without abnormality on direct and retroflexion views. Procedure Code(s): --- Professional --- 98696, Colonoscopy, flexible; diagnostic, including collection of specimen(s) by brushing or washing, when performed (separate procedure) Diagnosis Code(s): --- Professional --- Z86.010, Personal history of colonic polyps CPT copyright 2020 [employer]. All rights reserved. The codes documented in this report are preliminary and upon director of psychiatry review may be revised to meet current compliance requirements. Mason Rubalcava MD 03/16/2024 12:19:54 PM This report has been signed electronically.Mason Rubalcava MD Number of Addenda: 0 Note Initiated On: 03/16/2024 11:00 AM Scope In: Scope Out: Endoscopy Department at [facility] - [address] [place] [phone] Procedure Note Mason Rubalcava MD - 03/16/2024 [facility] GI Patient Name: Celsa Marrero Procedure Date: 03/16/2024 11:00 AM Date of : 1965 Age: 59 Room: ROOM 14 Gender: Male Note Status: Finalized Attending MD: Mason Rublacava MD, Procedure Date No Time: 03/16/2024 Procedure: [...] retroflexion views. Procedure Code(s): --- Professional --- 58161, Colonoscopy, flexible; diagnostic, including collection of specimen(s) by brushing or washing,when performed (separate procedure) Diagnosis Code(s): --- Professional --- Z86.010, Personal history of colonic polyps CPT copyright 2020 [employer] [place] [employer]. All rights reserved. The codes documented in this report are preliminary and upon director of psychiatry reviewmay be revised to meet current compliance requirements. Mason Rubalcava MD 03/16/2024 12:19:54 PM This report has been signed electronically.Mason Rubalcava MD Number of Addenda: 0 Note Initiated On: 03/16/2024 11:00 AM Scope In: Scope Out: Endoscopy Department at [facility] - [address] [place] [phone] IMPRESSION: - Non-bleeding internal hemorrhoids. - The examination was otherwise normal on directand retroflexion views. - No specimens collected. Recommendation: - Discharge patient to home. - Resume previous diet. - Continue present medications. - Repeat colonoscopy in 5 years for surveillance. - Return to GI office PRN. Mason Rubalcava MD GI~PROCEDURE ORDERABLES Final Result from Last 3 Months or Most Recently Relevant to Health Maintenance Insurance [facility] Care Teams Customer Contact Sales Associate Relationship Specialty Start Date End Date Kayla Sy MD [address] [place] [address] PCP - General Internal Medicine 02/03/24
--- OUTSIDE RECORDS SUMMARY | 2024-10-12 13:59 | XMS_ITS | Clinical Summary ---
Author Organization [address] Address [address] [place] [address] Phone Care Team Providers Care Staff Electrical Engineer Name Role Phone Kayla Sy MD Primary Care Provider [phone] Social History Tobacco Use Types Packs/Day Years [...] Lipid disorder screening 2003 Diabetes screening 02/13/2008 Pneumococcal Vaccine (50+ ye ars) (1 of 1 - PCV) 2013 Shingles vaccine (Shingrix) (1 of 2 - Shingrix (RZV) 2 Dose Standard Series) 2013 Covid-19 vaccine series ( - season) 2023 Influenza vaccine 11/26/2024 Colon cancer screening, Colonoscopy 03/16/2034 03/16/2024 RSV Immunization (1 - 1-dose 75+ series) 2038 Meningococcal Vaccine Aged Out No nan reji eligible based on patient's age to complete this topic Care Teams Staff Electrical Engineer Relationship Specialty Start Date End Date Kayla Sy MD [address] [place] [address] PCP - General Internal Medicine 04/23/24
--- NOTE | 2024-10-12 14:01 | A.OFFVIS_ITS ---
Intake Visit Reasons: Cystoscopy Intake Note: Patient is present for Cystoscopy Urology Medication:TADALAFIL,TAMSULOSIN,FINASTERIDER Antibiotic Allergy:NONE Blood Thinner:NONE Lot:[id number] Exp:06/21/27 Market Development Executive Required: No Allergies No Known Allergies Allergy (Verified 11/09/24 15:33) HPI Comments Details: Isaias is a pleasant male. He is a patient of Dr. Sy. He is seen for the following urologic conditions - elevated PSA - lower urinary tract symptoms Follow-up from daily tadalafil Cystoscopy - trilobar crowding Lower urinary tract symptoms Family history of BPH Progressive symptoms Maximized on finasteride and tamsulosin Has diabetes diagnosis Imaging - 04/21 MRI 60 g prostate, no lesions of restricted diffusion flow PSA 09/18 4.5 12%, 03/20 3.7 Recommend addition of daily tadalafil for bladder stabilization Green light laser prostatectomy Review of Systems Const Denies chills and Denies fever(s) Card Reports no additional complaints and Denies syncope Resp Denies cough GI Denies abdominal pain and Denies heartburn Reports as per HPI and Denies change in libido Neuro Denies syncope Psych Denies change in libido Endo Denies change in libido Physical Exam Const General: cooperative, healthy appearing, comfortable and no acute distress Orientation/consciousness: patient oriented x3 HEENT Face and sinus: Yes normal facial exam Mouth: moist mucous membranes Neck Neck: Yes normal visual inspection, Yes full ROM and Yes trachea midline Chest Chest palpation & inspection: normal inspection of the chest Resp Effort & Inspection: normal respiratory effort, able to speak in complete sentences and no respiratory distress GI Inspection: Yes normal to inspection Back/Spine/Pelvis Cervical Spine: normal cervical lordosis Thoracic/Lumbar Spine: thoracic and lumbar spine normal to inspection Skin General skin exam: no rashes or lesions noted Neuro General: patient oriented x3, gait normal, tone normal and moves all extremities Extrem General: Yes normal to inspection and Yes capillary refill normal Office Procedures Cystoscopy Consent Discussed risk and benefit or proposed procedure with the patient. Information consent for procedure given to the patient. Discussed technical aspects, risks, benefits and alternatives in full. Addressed all of the patient's questions and concerns regarding the procedure. The patient demonstrated knowledge and understanding. They wish to proceed with this procedure. Preparation The patient was prepped in the usual manner. A medical aides teacher was present and in the room. Genitalia was prepped with betadine solution in a sterile manner. Lidocaine Jelly 2% was placed into the urethra and 16Fr flexible Olympus cystoscope was inserted into the meatus after adequate lubrication. Procedure Cystoscopy performed using a disposable Urovue digital 16 Swazi cystoscope. Meatus circumcised Urethra anterior and posterior urethra normal Prostatic Urethra trilobar crowding Bladder examination with retroflexion of cystoscope Bladder Orifices normal shape and position Bladder Capacity Normal Trabeculations Grade 0 Cellule Formation None Diverticulum Formation None Mucosal Erythema None Bladder Tumor None 65574-[id number] DISPOSABLE SCOPE URO-G FLEXIBLE SCOPE Procedure code (CPT) selection complete Assessment & Plan Assessment & Plan (1) Elevated PSA: Code(s): R97.20 - Elevated prostate specific antigen [PSA] Category: Medical (2) BPH w urinary obs/LUTS: Code(s): N40.1 - Benign prostatic hyperplasia with lower urinary tract symptoms; N13.8 - Other obstructive and reflux uropathy Category: Medical Plan Discussed procedure He would like to move ahead with repeat PSA in six-month continue with medication Orders: Orders PSA,Total (Free>4and<10) 6 Months R97.20 - Elevated prostate specific antigen [PSA] Patient Instructions: This note is constructed using voice recognition software. While every effort has been made to ensure accuracy framing mill supervisor errors may have been included. Imaging studies, laboratory and physical exam results were discussed and reviewed in detail. No major barriers to patient understanding were identified. An opportunity to ask questions regarding the treatment plan was provided. All questions were answered. The patient expressed understanding and agreement with the above treatment plan. The patient is aware they should contact our office by phone for worsening of their current condition or the appearance of new urologic symptoms. Compliance is encouraged with any medications and followup testing that is ordered. It is a privilege to participate in the urologic care of your patient. If you have any questions or concerns regarding treatment for the above conditions, or other urologic issues, please do not hesitate to contact me. The office telephone contact is [phone]. Sincerely, Dr Salbador Beebe MD, [facility] - Urology Compassionate Specialist Care for the Genitourinary System Coding Level of Care Code Est Pt Level 3 (81492) Diagnoses Elevated PSA R97.20 BPH w urinary obs/LUTS N40.1; N13.8 CPT Codes Cystoscopy - CPT: 46875-[id number] ([id number])
== END 2024-10-12 14:55 | disposition home or self-care (01) ==
PROVIDERS: PCP Hospitalist; Visit Provider Urology
DX: R97.20 Elevated prostate specific antigen [PSA] (principal); N40.1 Benign prostatic hyperplasia with lower urinary tract symptoms; N13.8 Other obstructive and reflux uropathy
CPT/HCPCS: 52000; 99213

== ENCOUNTER → 2024-10-12 13:55 | Outpatient (BNVA) | payer OTHER, SELFPAY | PROVIDERS: PCP Hospitalist; Visit Provider Urology | DX: N40.1 Benign prostatic hyperplasia with lower urinary tract symptoms (principal); N13.8 Other obstructive and reflux uropathy; R97.20 Elevated prostate specific antigen [PSA] | CPT/HCPCS: 52000 ==

== ENCOUNTER 2024-11-09 15:25 | Outpatient (AMB) | payer OTHER, SELFPAY ==
--- OUTSIDE RECORDS SUMMARY | 2024-11-09 15:27 | XMS_ITS | Clinical Summary ---
Author Organization [facility] [address] [facility] Address [address] [place] [address] Phone Care Team Providers Care Residential Real Estate Appraiser Name Role Phone Kayla Sy MD Primary Care Provider [phone] Allergies No known active allergies Medications finasteride [...] 1:00 PM EDT Procedure visit General Surgery [address] [address] Elliot Pardo MD Dysplastic nevus (Primary Dx) 08/24/2024 8:00 AM EDT Consult [address] [address] Elliot Pardo MD Dysplastic nevus [...] ars (1 of 1 - PCV) 2013 HIV Screening 02/03/2024 Hepatitis C Screening 02/03/2024 Social Influencers of Health Screening 02/03/2024 Depression Screening 03/28/2024 Influenza Vaccine (#1) 2024 12/31/2023 Cholesterol Screening [...] identified 09/25/2024 9:09 AM EDT JAGRUTI CHIRINOS [place] ([facility]) [facility] Clinical Information Dysplastic nevus D23.9 [id number] Right Mid Upper Back Dysplastic Nevus 09/25/2024 9:09 AM EDT JAGRUTI CHIRINOS [place] ([facility]) [facility] Gross Description A. Back, Upper, Right [...] pieces each SHYANN 09/25/2024 9:09 AM EDT [facility] Disclaimer Unless otherwise specified, all tissue is 10% NB formalin fixed and paraffin embedded. 09/25/2024 9:09 AM EDT [facility] Tissue Structure of upper back / Unknown Non-blood Collection / Unknown 09/21/2024 1:02 PM EDT 09/21/2024 1:04 PM EDT Comment:[id number] Mid Upper Back Dysplastic Nevus us Elliot Pardo MD LAB PATHOLOGY ORDERABLES Fi nal Result [facility]) [facility] [address] [place] [address], * COLONOSCOPY Anesthesia - MAC; [facility] ENDOSCOPY (03/16/2024 12:19 PM EST) Anatomical Region [...] office PRN. Narrative 03/16/2024 12:20 PM EST [facility] GI Patient Name: Celsa Marrero Procedure Date: [...] retroflexion views. Procedure Code(s): --- Professional --- 84658, Colonoscopy, flexible; diagnostic, including collection of specimen(s) by brushing or washing, when performed (separate procedure) Diagnosis Code(s): --- Professional --- Z86.010, Personal history of colonic polyps CPT copyright 2020 [employer]. All rights reserved. The codes documented in this report are preliminary and upon election watcher review may be revised to meet current compliance requirements. Mason Rubalcava MD 03/16/2024 12:19:54 PM This report has been signed electronically.Mason Rubalcava MD Number of Addenda: 0 Note Initiated On: 03/16/2024 11:00 AM Scope In: Scope Out: Endoscopy Department at [facility] - [address] [place] [phone] Procedure Note Mason Rubalcava MD - 03/16/2024 [facility] GI Patient Name: Celsa Marrero Procedure Date: [...] retroflexion views. Procedure Code(s): --- Professional --- 31852, Colonoscopy, flexible; diagnostic, including collection of specimen(s) by brushing or washing,when performed (separate procedure) Diagnosis Code(s): --- Professional --- Z86.010, Personal history of colonic polyps CPT copyright 2020 [employer]. All rights reserved. The codes documented in this report are preliminary and upon election watcher reviewmay be revised to meet current compliance requirements. Mason Rubalcava MD 03/16/2024 12:19:54 PM This report has been signed electronically.Mason Rubalcava MD Number of Addenda: 0 Note Initiated On: 03/16/2024 11:00 AM Scope In: Scope Out: Endoscopy Department at [facility] - [address] [place] [phone] IMPRESSION: - Non-bleeding internal hemorrhoids. - The [...] Most Recently Relevant to Health Maintenance Insurance [facility] Care Teams Residential Real Estate Appraiser Relationship Specialty Start Date End Date Kayla Sy MD [address] [place] [address] PCP - General Internal Medicine 02/03/24
--- OUTSIDE RECORDS SUMMARY | 2024-11-09 15:27 | XMS_ITS | Clinical Summary ---
Author Organization [address] Address [address] [place] [phone] Phone Care Team Providers Care Rn Referral Name Role Phone Kayla Sy MD Primary Care Provider [phone] Social History Tobacco Use Types Packs/Day Years [...] age to complete this topic Care Teams Rn Referral Relationship Specialty Start Date End Date Kayla Sy MD [address] [place] [address] PCP - General Internal Medicine 04/23/24
--- OUTSIDE RECORDS SUMMARY | 2024-11-09 15:27 | XMS_ITS | Encounter Summary ---
Author Organization [facility] Address [address] [address] Phone Care Team Providers Care Bander Hand Name Role Phone Unavailable Primary Care Provider Unavailabl e Encounter Details Date Type Department Care Team (Latest Contact Info) Description 10/03/2024 Office Communication [facility]. [address] [address] Uday Wall MD [address] [address] Essential (primary) hypertension (Primary Dx) [...] Procedure Name Priority Date/Time Associated Diagnosis Comments HEPATITIS C ANTIBODY Routine 10/23/2024 8:36 AM EDT Essential (primary) hypertension HEPATITIS B CORE ANTIBODY, IGM Routine 10/23/2024 8:36 AM EDT Essential (primary) hypertension HEPATITIS B SURFACE ANTIBODY QUANT Routine 10/23/2024 8:36 AM EDT Essential (primary) hypertension HEPATITIS B SURFACE ANTIGEN Routine 10/23/2024 8:36 AM EDT Essential (primary) hypertension PSA, TOTAL AND FREE Routine 10/23/2024 8 :36 AM EDT Essential (primary) hypertension TSH W/REFLEX TO FT4 Routine 10/23/2024 8 :36 AM EDT Essential (primary) hypertension PSA, TOTAL AND FREE Routine 10/11/2024 1 [...] hypertension documented in this encounter Results * TSH w/reflex to FT4 (10/23/2024 8:36 AM EDT) TSH 1.230 0.450 - 4.500 uIU/mL [facility] Comment: No apparent thyroid disorder. Additional testing not indicated. In rare instances, Secondary Hypothyroidism as well as Subclinical Hypothyroidism have been reported in some patients with normal TSH values. Blood Venous blood / Unknown 10/23/2024 8:36 AM EDT 10/23/2024 us Uday Wall MD LAB BLOOD ORDERABLES Final Re sult [facility] [address] [place] [phone] * (ABNORMAL) PSA, total and free (10/23/2024 8:36 AM EDT) PSA 4.9(H) 0.0 - 4.0 ng/mL [facility] Comment: [employer] ECLIA methodology. According to the [employer], Serum PSA should decrease and [...] or absence of malignant disease. PSA, Free 0.66 N/A ng/mL [facility] Comment:Paresh ECLIA methodol ogy. PSA Free Percent 13.5 % [facility] Comment: The table below lists the probability [...] of men. Blood Venous blood / Unknown 10/23/2024 8:36 AM EDT 10/23/2024 Uday Wall MD LAB BLOOD ORDERABLES Final Re sult [facility] [address] [place] [address] * Hepatitis C antibody (10/23/2024 8:36 AM EDT) Hep C Virus Ab Non Reactive Non Reactive [facility] Comment: HCV antibody alone does not differentiate between previously resolved infection and active infection. Equivocal and Reactive HCV antibody results should be followed up with an HCV RNA test to support the diagnosis of active HCV infection. Blood Venous blood / Unknown 10/23/2024 8:36 AM EDT 10/23/2024 Uday Wall MD LAB BLOOD ORDERABLES Final Re sult [facility] [place] [address] [place] [address] * Hepatitis B Surface Antigen (10/23/2024 8:36 AM EDT) Hep B Surface Ag Negative Negative [facility] Blood Venous blood / Unknown 10/23/2024 8:36 AM EDT 10/23/2024 Uday Wall MD LAB BLOOD ORDERABLES Final Re sult [facility] [address], [address] [place] [address] * Hepatitis B Surface Antibody (10/23/2024 8:36 AM EDT) Hepatitis B Surface Ab 22.2 Immunity>1 0 mIU/mL [facility] Comment: Status of Immunity Anti-HBs Level Inconsistent with Immunity 0.0 - 10.0 Consistent with Immunity >10.0 Blood Venous blood / Unknown 10/23/2024 8:36 AM EDT 10/23/2024 Uday Wall MD LAB BLOOD ORDERABLES Final Re sult [facility] [address], [address] [place] [address] * Hepatitis B core antibody, IgM (10/23/2024 8:36 AM EDT) Pathologist [facility] Hep B Core IgM Negative Negative [facility] [place] Blood Venous blood / Unknown 10/23/2024 8:36 AM EDT 10/23/2024 Uday Wall MD LAB BLOOD ORDERABLES Final Re sult [facility] [address], [address] [place] [address] * (ABNORMAL) Hemoglobin A1c (10/11/2024 12:46 PM EDT) Hemoglobin A1C 5.9(H) 4.8 - 5.6 % [facility] Comment: Prediabetes: 5.7 - 6.4 Diabetes: >6.4 Glycemic control for adults with diabetes: <7.0 Blood Venous blood / Unknown 10/11/2024 12:46 PM EDT 10/11/2024 Uday Wall MD LAB BLOOD ORDERABLES Final Re sult [facility] [address] [place] [address] * (ABNORMAL) PSA, total and free (10/11/2024 12:46 PM EDT) PSA 5.5(H) 0.0 - 4.0 ng/mL [facility] Comment: [employer] ECLIA methodology. According to the [employer], Serum PSA should decrease and [...] malignant disease. PSA, Free 0.61 N/A ng/mL [facility] Comment:[employer] ECLIA methodol ogy. PSA Free Percent 11.1 % [facility] Comment: The table below lists the probability [...] / Unknown 10/11/2024 12:46 PM EDT 10/11/2024 Uday Wall MD LAB BLOOD ORDERABLES Final Re sult [facility] [address] [place] [address] * Microscopic Examination (10/03/2024 8:20 AM EDT) WBC, Urine None seen 0 - 5 /hpf [facility] RBC, Urine None seen 0 - 2 /hpf [facility] Squamous Epithelial, Urine None seen 0 - 10 /hpf [facility] Casts None seen None seen /lpf [facility] Bacteria, Urine None seen None seen/Few [facility] 10/03/2024 8:20 AM EDT 10/03/2024 Uday Wall MD LAB MICROBIOLOGY - GENERAL OR DERABLES Final Result Performing Organization Address City/[facility]/ZIP Co de Phone Number [facility] [address] [place] [address] * CBC (10/03/2024 8:20 AM EDT) WBC 4.6 3.4 - 10.8 x10E3/uL [facility] RBC 4.93 4.14 - 5.80 x10E6/uL [facility] Hemoglobin 15.4 13.0 - 17.7 g/dL [facility] Hematocrit 47.4 37.5 - 51.0 % [facility] MCV 96 79 - 97 fL [facility] MCH 31.2 26.6 - 33.0 pg [facility] MCHC 32.5 31.5 - 35.7 g/dL [facility] RDW 12.9 11.6 - 15.4 % [facility] Platelets 185 150 - 450 x10E3/uL [facility] Blood Venous blood / Unknown 10/03/2024 8:20 AM EDT 10/03/2024 us Uday Wall MD LAB BLOOD ORDERABLES Final Re sult [facility] [address] [place] [address] * (ABNORMAL) PSA, total and free (10/03/2024 8:20 AM EDT) PSA 4.5(H) 0.0 - 4.0 ng/mL [facility] Comment: [employer] ECLIA methodology. According to the [employer], Serum PSA should decrease and [...] malignant disease. PSA, Free 0.55 N/A ng/mL [facility] Comment:[employer] ECLIA methodol ogy. PSA Free Percent 12.2 % [facility] Comment: The table below lists the probability [...] ORDERABLES Final Re sult Performing Organization Address City/[facility] Co de Phone Number [facility] [address] [place] [address] * (ABNORMAL) Bilirubin, total and direct (10/03/2024 8:20 AM EDT) Total Bilirubin 1.2 0.0 - 1.2 mg/dL [facility] Bilirubin, Direct 0.38 0.00 - 0.40 mg/dL [facility] Bilirubin, Indirect 0.82(H) 0.10 - 0.80 mg/dL [facility] Blood Venous blood / Unknown 10/03/2024 8:20 AM EDT 10/03/2024 Uday Wall MD LAB BLOOD ORDERABLES Final Re sult Performing Organization Address [facility] Co de Phone Number [facility] [address] [place] [address] * Alkaline phosphatase (10/03/2024 8:20 AM EDT) Alkaline Phosphatase 56 44 - 121 IU/L [facility] Blood Venous blood / Unknown 10/03/2024 8:20 AM EDT 10/03/2024 Uday Wall MD LAB BLOOD ORDERABLES Final Re sult Performing Organization Address City/[facility] Co de Phone Number [facility] [address] [place] [address] * ALT (10/03/2024 8:20 AM EDT) ALT (SGPT) 24 0 - 44 IU/L [facility] Blood Venous blood / Unknown 10/03/2024 8:20 AM EDT 10/03/2024 Uday Wall MD LAB BLOOD ORDERABLES Final Re sult [facility] [address] [place] [address] * AST (10/03/2024 8:20 AM EDT) AST (SGOT) 22 0 - 40 IU/L [facility] Blood Venous blood / Unknown 10/03/2024 8:20 AM EDT 10/03/2024 Uday Wall MD LAB BLOOD ORDERABLES Final Re sult [facility] [address] [place] [address] * Lipid panel (10/03/2024 8:20 AM EDT) Cholesterol 128 100 - 199 mg/dL [facility] Triglycerides 69 0 - 149 mg/dL [facility] HDL 60 >39 mg/dL [facility] VLDL Cholesterol Sunny 14 5 - 40 mg/dL [facility] LDL Calculated 54 0 - 99 mg/dL [facility] Blood Venous blood / Unknown 10/03/2024 8:20 AM EDT 10/03/2024 Uday Wall MD LAB BLOOD ORDERABLES Final Re sult Performing Organization Address City/[facility]/ZIP Co de Phone Number [facility] [address] [place] [address] * Protein, Total, Random Urine w/Creatinine (Protein/Creat Ratio) (10/03/2024 8:20 AM EDT) Creatinine, Ur 163.8 Not Estab. mg/dL [facility] Protein, Ur 10.3 Not Estab. mg/dL [facility] Urine Protein/Creatin ine Ratio 63 0 - 200 mg/g creat [facility] Urine Urine specimen obtained by clean catch procedure / Unknown 10/03/2024 8:20 AM EDT 10/03/2024 Uday Wall MD LAB URINE ORDERABLES Final Re sult Performing Organization Address [facility]/ZIP Co de Phone Number [facility] [address] [place] [address] * Urine Albumin / Creatinine Ratio (10/03/2024 8:20 AM EDT) Albumin, Urine 3.7 Not Estab. ug/mL [facility] Albumin/Creatin ine Ratio 2 0 - 29 mg/g creat [facility] Comment: Normal: 0 - 29 Moderately increased: 30 - 300 Severely increased: >300 Urine Urine specimen obtained by clean catch procedure / Unknown 10/03/2024 8:20 AM EDT 10/03/2024 Uday Wall MD LAB URINE ORDERABLES Final Re sult Performing Organization Address City/[facility]/ZIP Co de Phone Number [facility] [address] [place] [address] * Urinalysis with microscopic (10/03/2024 8:20 AM EDT) Specific [place], Urine 1.026 1.005 - 1.030 [facility] [phone] pH Urine 5.5 5.0 - 7.5 [facility] Color, Urine Yellow Yellow [facility] Appearance Urine Clear Clear [facility] WBC Esterase Urine Negative Negative [facility] Protein, Ur Negative Negative/Tra ce [facility] Glucose, Ur Negative Negative [facility] [phone] Ketones, Urine Negative Negative [facility] Blood Urine Negative Negative [facility] [phone] Bilirubin Urine Negative Negative [facility] Urobilinogen Urine 0.2 0.2 - 1.0 mg/dL [facility] Nitrite, Urine Negative Negative [facility] Microscopic Examination Comment [facility] Comment:Microscopic follows if indicated. Other Microsc. Observations See below: [facility] [phone] Comment:Microscopic was alexey cated and was performed. Urine Urine specimen obtained by clean catch procedure / Unknown 10/03/2024 8:20 AM EDT 10/03/2024 us Udya Wall MD LAB URINE ORDERABLES Final Re sult [facility] [address] [place] [address] * (ABNORMAL) Renal Function Panel (10/03/2024 8:20 AM EDT) Glucose 115(H) 70 - 99 mg/dL [facility] BUN 19 8 - 27 mg/dL [facility] Creatinine 1.09 0.76 - 1.27 mg/dL [facility] eGFR CKD-EPI CR 2020 77 >59 mL/min/1.7 3 [facility] BUN/Creatinine Ratio 17 10 - 24 [facility] Sodium 143 134 - 144 mmol/L [facility] Potassium 4.7 3.5 - 5.2 mmol/L [facility] Chloride 106 96 - 106 mmol/L [facility] Bicarbonate (CO2) 20 20 - 29 mmol/L [facility] Calcium 9.3 8.6 - 10.2 mg/dL [facility] Albumin 4.6 3.9 - 4.9 g/dL [facility] Phosphorus 2.8 2.8 - 4.1 mg/dL [facility] Blood Venous blood / Unknown 10/03/2024 8:20 AM EDT 10/03/2024 us Uday Wall MD LAB BLOOD ORDERABLES Final Re sult [facility] [address] [place] [address] documented in this encounter Visit Diagnoses Diagnosis Essential (primary) hypertension- Primary documented in this encounter
--- NOTE | 2024-11-09 15:32 | A.OFFVIS_ITS ---
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 He is a patient of Dr. Sy. He is seen for the following urologic conditions - elevated PSA - lower urinary tract symptoms Persistent mild elevation of PSA Imaging findings prostatitis Would like to move ahead was GreenLight laser prostate He would like to consider prostate biopsy. I explained negative predictive value on MRI is high. Lower urinary tract symptoms Family history of BPH Progressive symptoms Maximized on finasteride and tamsulosin Has diabetes diagnosis Imaging - 04/21 MRI 60 g prostate, no lesions of restricted diffusion flow - 10/19 MRI 60 g prostate, consistent prostatitis PSA 09/18 4.5 12%, 03/20 3.7 Recommend addition of daily tadalafil for bladder stabilization Review of Systems Const Denies chills and Denies fever(s) Card Reports no additional complaints and Denies syncope Resp Denies cough GI Denies abdominal pain and Denies heartburn Reports as per HPI and Denies change in libido Neuro Denies syncope Psych Denies change in libido Endo Denies change in libido Physical Exam Const General: cooperative, healthy appearing, comfortable and no acute distress Orientation/consciousness: patient oriented x3 HEENT Face and sinus: Yes normal facial exam Mouth: moist mucous membranes Neck Neck: Yes normal visual inspection, Yes full ROM and Yes trachea midline Chest Chest palpation & inspection: normal inspection of the chest Resp Effort & Inspection: normal respiratory effort, able to speak in complete sentences and no respiratory distress GI Inspection: Yes normal to inspection Back/Spine/Pelvis Cervical Spine: normal cervical lordosis Thoracic/Lumbar Spine: thoracic and lumbar spine normal to inspection Skin General skin exam: no rashes or lesions noted Neuro General: patient oriented x3, gait normal, tone normal and moves all extremities Extrem General: Yes normal to inspection and Yes capillary refill normal Office Procedures Post Void Residual Post Residual Void Post Void Residual (PVR): 0 [id number] Void Residual by ultrasound Assessment & Plan Assessment & Plan (1) Prostatitis: Code(s): N41.9 - Inflammatory disease of prostate, unspecified Category: Medical Plan We discussed the nature of the decision and reasonable options for performing a prostate intervention. Interventions include TURP, GreenLight laser enucleation of the prostate, GreenLight laser ablation of the prostate, transurethral incision of the prostate, and I-Tend prostate procedure. Options such as medical therapy were discussed. The relative uncertainties and benefits related to each alternate procedure were adequately discussed. General surgical risks including, but not limited to, pain, bleeding, infection, myocardial infarction, pulmonary embolus, deep vein thrombosis and cerebrovascular accident which may result in further hospitalization were discussed. Full disclosure of the procedure as well as all major risks, benefits and complications were discussed including but not limited to damage to the urethra or bladder neck, recurrent BPH, retrograde ejaculation, bladder infection, urge, de alberto frequency, incomplete emptying, dysuria, remote chance of erectile dysfunction, epididymitis, and meatal stenosis. The success rate of the procedure was discussed. Success of the procedure in the short-term does not necessarily guarantee that long-term success will be maintained. Suitable follow up will need to be maintained. The patient showed understanding of discussion. An opportunity was provided for questions to be answered and wishes to proceed with the following procedure. - GreenLight laser prostate Orders: Orders AMB Post Void Residual by ultrasound 11/09/24 N40.1 - Benign prostatic hyperplasia with lower urinary tract symptoms, N13.8 - Other obstructive and reflux uropathy Medications: New prednisone 20 mg PO DAILY 5 tabs 0RF 5 days N41.9 - Inflammatory disease of prostate, unspecified sulfamethoxazole-trimethoprim 800-160 mg (Bactrim DS) 1 tab PO BID 28 tabs 0RF 14 days N41.9 - Inflammatory disease of prostate, unspecified meloxicam 15 mg PO DAILY 30 tabs 0RF 30 days N41.9 - Inflammatory disease of prostate, unspecified Patient Instructions: This note is constructed using voice recognition software. While every effort has been made to ensure accuracy watermelon inspector errors may have been included. Imaging studies, laboratory and physical exam results were discussed and reviewed in detail. No major barriers to patient understanding were identified. An opportunity to ask questions regarding the treatment plan was provided. All questions were answered. The patient expressed understanding and agreement with the above treatment plan. The patient is aware they should contact our office by phone for worsening of their current condition or the appearance of new urologic symptoms. Compliance is encouraged with any medications and followup testing that is ordered. It is a privilege to participate in the urologic care of your patient. If you have any questions or concerns regarding treatment for the above conditions, or other urologic issues, please do not hesitate to contact me. The office telephone contact is [phone]. Sincerely, Dr Salbador Beebe MD, [facility] - Urology Compassionate Specialist Care for the Genitourinary System Coding Level of Care Code Est Pt Level 4 (26606) Diagnoses Prostatitis N41.9 CPT Codes Post Residual Void - PVR CPT Code: 14947-Szxv Void Residual by ultrasound ([id number])
== END 2024-11-09 16:10 | disposition home or self-care (01) ==
LOC: HO.HUSH 15:26
PROVIDERS: PCP Hospitalist; Visit Provider Urology
DX: N41.9 Inflammatory disease of prostate, unspecified (principal)
CPT/HCPCS: 99214

== ENCOUNTER → 2024-11-09 15:25 | Outpatient (BNVA) | payer OTHER, SELFPAY | PROVIDERS: PCP Hospitalist; Visit Provider Urology | DX: N40.1 Benign prostatic hyperplasia with lower urinary tract symptoms (principal); N13.8 Other obstructive and reflux uropathy | CPT/HCPCS: 51798 ==